=== PATIENT | female | born 2000 | race American Indian/Alaskan Native ===

== ENCOUNTER 2020-09-19 07:09 | Emergency (ER) | payer SELFPAY ==
[2020-09-19] MEDS ORDERED: ACETAMINOPHEN 325 MG TAB PO ONE (10:18)
--- NOTE | 2020-09-19 10:19 | Emergency Department Report ---
ED General Adult HPI - General Chief complaint: Upper Respiratory Infection Stated complaint: CHEST AND SIDE PAIN FOR FIVE DAYS PUI?: No Time Seen by Provider: 09/19/20 10:10 Source: patient Mode of arrival: Ambulatory Limitations: No Limitations - History of Present Illness Initial comments: 20-year-old female presents to the ER today with complaints of right-sided chest pain. Patient states that the pain is located mainly underneath her right breast and radiates around to the back. She states that it started mildly this past Friday but got worse on Friday. She says been a constant pain and feels like somebody punched her in the chest. She states that is worse when she takes a deep breath, when she coughs, when she lays down and it is sore to palpation. She admits that she has had a cough for the past month secondary to her bronchitis which typically occurs during the spring season. She states that the cough has been mild but sometimes it can get severe. She reports difficulty breathing due to the pain in the ribs. She also reports rhinorrhea and nasal congestion. She denies any nausea, vomiting, abdominal pain or UTI symptoms. She denies any calf pain or lower extremity swelling. She denies any fever or chills. She does smoke occasionally. She used to be on control pills but she stopped taking it about a month ago. She denies any recent long distance travel, recent surgery, lower extremity injury, diagnosis of cancer or PE or DVT in the past. She denies any heart disease. MD Complaint: Right sided chest pain -: days(s) (4) - Related Data Previous Rx's Medication Instructions Recorded Last Taken Type Acetamin/Codeine 120-12Mg/5 ml 5 ml PO Q8H PRN #60 ml 06/22/14 Unknown Rx [Tylenol/Codeine 120-12 mg/5 ml] Fluticasone [Flonase] 1 spray NS QDAY #1 bottle 06/22/14 Unknown Rx Albuterol Mdi (or & Nicu Only) 2 puff IH QID PRN #8.5 gram 09/19/20 Unknown Rx [ProAir HFA Inhaler] Promethazine /Codeine 5 - 10 ml PO Q6H PRN #120 ml 09/19/20 Unknown Rx [Phenergan/Codeine 6.25-10 mg/5 ml] methOCARBAMOL [Robaxin TAB] 500 mg PO Q8HR PRN #30 tab 09/19/20 Unknown Rx predniSONE [Deltasone] 40 mg PO QDAY #10 tab 09/19/20 Unknown Rx Allergies Allergy/AdvReac Type Severity Reaction Status Date / Time amoxicillin AdvReac Vomiting Verified 09/19/20 07:54 Penicillins AdvReac VOMIT; Verified 09/19/20 07:54 SKIN PEELS ED Review of Systems ROS: Stated complaint: CHEST AND SIDE PAIN FOR FIVE DAYS Other details as noted in HPI Comment: All other systems reviewed and negative Constitutional: denies: chills, fever ENT: denies: ear pain, throat pain, dental pain, hearing loss, epistaxis, congestion Respiratory: cough, shortness of breath (sec to pain in right chest when she breathes). denies: SOB with exertion, SOB at rest Cardiovascular: chest pain (right sided chest pain ) Gastrointestinal: denies: abdominal pain, nausea, diarrhea, constipation, hematemesis, melena, hematochezia Genitourinary: denies: urgency, dysuria, discharge Musculoskeletal: denies: back pain, joint swelling, arthralgia, myalgia Skin: denies: rash, lesions, change in color, change in hair/nails, pruritus Neurological: denies: headache, weakness, numbness, paresthesias, confusion, abnormal gait, vertigo Psychiatric: denies: anxiety, depression, auditory hallucinations, visual hallucinations, homicidal thoughts, suicidal thoughts Hematological/Lymphatic: denies: easy bleeding, easy bruising ED Past Medical Hx - Past Medical History Hx Asthma: Yes - Social History Smoking Status: Current Some Day Smoker Substance Use Type: None - Medications Home Medications: Home Medications Medication Instructions Recorded Confirmed Last Taken Type Acetamin/Codeine 120-12Mg/5 ml 5 ml PO Q8H PRN #60 ml 06/22/14 Unknown Rx [Tylenol/Codeine 120-12 mg/5 ml] Fluticasone [Flonase] 1 spray NS QDAY #1 bottle 06/22/14 Unknown Rx Albuterol Mdi (or & Nicu Only) 2 puff IH QID PRN #8.5 gram 09/19/20 Unknown Rx [ProAir HFA Inhaler] Promethazine /Codeine 5 - 10 ml PO Q6H PRN #120 ml 09/19/20 Unknown Rx [Phenergan/Codeine 6.25-10 mg/5 ml] methOCARBAMOL [Robaxin TAB] 500 mg PO Q8HR PRN #30 tab 09/19/20 Unknown Rx predniSONE [Deltasone] 40 mg PO QDAY #10 tab 09/19/20 Unknown Rx ED Physical Exam - General Limitations: No Limitations General appearance: alert, in no apparent distress, anxious - Head Head exam: Present: atraumatic, normocephalic, normal inspection - Eye Eye exam: Present: normal appearance, PERRL, EOMI Pupils: Present: normal accommodation - ENT ENT exam: Present: normal exam, mucous membranes moist - Neck Neck exam: Present: normal inspection, full ROM - Respiratory Respiratory exam: Present: normal lung sounds bilaterally, chest wall tenderness (ttp right ribs/chest wall underneath right breast; No swelling, no deformity, ecchymosis or rash noted). Absent: respiratory distress, wheezes, rales, rhonchi - Cardiovascular Cardiovascular Exam: Present: regular rate, normal rhythm, normal heart sounds - GI/Abdominal GI/Abdominal exam: Present: soft. Absent: distended, tenderness, guarding, rebound, rigid - Extremities Exam Extremities exam: Present: normal inspection, full ROM. Absent: pedal edema, calf tenderness - Back Exam Back exam: Present: normal inspection - Neurological Exam Neurological exam: Present: alert, oriented X3, CN II-XII intact, normal gait - Psychiatric Psychiatric exam: Present: normal affect, normal mood - Skin Skin exam: Present: intact ED Course Vital Signs 09/19/20 09/19/20 07:52 12:05 Temperature 98.5 F Pulse Rate 70 89 Respiratory 18 Rate Blood Pressure 120/45 Blood Pressure 121/70 [Left] O2 Sat by Pulse 100 99 Oximetry ED Medical Decision Making - Lab Data Result diagrams: 09/19/20 10:26 09/19/20 10:26 - EKG Data EKG shows normal: sinus rhythm Rate: bradycardia (47) No standard instances Ectopy: PAC - Radiology Data Radiology results: report reviewed Patient: CRYSTAL WILLIAMSON MR#: [id number] : 2000 Acct:[id number] Age/Sex: 20 / F A DM Date: 09/19/20 Loc: ED Attending Dr: Ordering Physician: RAMSEY GARDNER Date of Service: 09/19/20 Procedure(s): XR chest routine 2V Accession Number(s): [id number] cc: RAMSEY GARDNER Fluoro Time In Minutes: CHEST 2 VIEWS 1101 INDICATION / CLINICAL INFORMATION: right sided chest pain COMPARISON: None available. FINDINGS: SUPPORT DEVICES: None. HEART / MEDIASTINUM: No significant abnormality. LUNGS / PLEURA: No significant pulmonary or pleural abnormality. No pneumothorax. ADDITIONAL FINDINGS: No significant additional findings. IMPRESSION: No significant acute abnormality Signer Name: Cristóbal Taylor MD Signed: 09/19/2020 11:19 AM Workstation Name: [id number] Transcribed By: Dictated By: Cristóbal Taylor MD Electronically Authenticated By: Cristóbal Taylor MD Signed Date/Time: 09/19/201118 DD/ 18 TD/TT: - Medical Decision Making Labs reviewed, and unremarkable including a negative troponin and negative D- dimer. Her EKG which shows no significant dysrhythmia, STEMI or acute ischemic changes. Chest x-ray is normal. Patient reports some improvement of her pain after the Tylenol. She is currently well appearing, not toxic, and not in any respiratory or pain distress. Her vital signs are stable. She is neurologically intact, with normal gait in ED. She does have tenderness to her chest at the area she is hurting. Her pain could be related to chest wall strain from her cough. Her history, exam, diagnostic testing and current condition do not suggest that this patient is having acute myocardial infarction, significant arrhythmia, unstable angina, esophageal perforation, pulmonary embolism, aortic dissection, pneumothorax, severe pneumonia, sepsis or other significant pathology that would warrant further testing, continued ED treatment, admission or cardiology or other specialist consultation at this time. Discussed lab/cxr/EKG results, suspected dx and tx plan with patient. Recommend f/u with PCP. She expressed understanding of instructions and agreed with plan. She was stable at time of d/c. Critical care attestation.: If time is entered above; I have spent that time in minutes in the direct care of this critically ill patient, excluding procedure time. ED Disposition Clinical Impression: Chest wall muscle strain, Bronchitis Disposition: DC-01 TO HOME OR SELFCARE Is pt being admited?: No Does the pt Need Aspirin: No Condition: Stable Instructions: Acute Bronchitis, Pediatric, Chest Wall Pain, [id number], Muscle Strain, [id number], Chronic Bronchitis (ED) Additional Instructions: Take the promethazine with codeine as needed for cough and it will also help with pain, also take the muscle relaxer and the prednisone and use albuterol inhaler as prescribed. Follow up with PCP listed on your d/c instructions. Return to ED if worse Prescriptions: predniSONE [Deltasone] 40 mg PO QDAY #10 tab Promethazine /Codeine [Phenergan/Codeine 6.25-10 mg/5 ml] 5 - 10 ml PO Q6H PRN #120 ml PRN Reason: cough Albuterol Mdi (or & Nicu Only) [ProAir HFA Inhaler] 2 puff IH QID PRN #8.5 gram PRN Reason: Shortness Of Breath methOCARBAMOL [Robaxin TAB] 500 mg PO Q8HR PRN #30 tab PRN Reason: Muscle Spasm Referrals: YAHAIRA CARD MD [Staff Physician] - 3-5 Days Forms: Work/School Release Form(ED) Time of Disposition: 11:51
[2020-09-19 10:47] LABS: Basophils % (Auto) 0.3 % (0.0-1.8); Eosinophils % (Auto) 0.4 % (0.0-4.3); Hematocrit 44.7 % (30.3-42.9); Hemoglobin 15.2 gm/dl (10.1-14.3); Lymphocytes # (Auto) 2.5 K/mm3 (1.2-5.4); Mean Corpuscular HGB Conc 34 % (30-34); Mean Corpuscular Volume 94 fl (79-97); Monocytes # (Auto) 0.6 K/mm3 (0.0-0.8); Monocytes % (Auto) 6.5 % (0.0-7.3); Platelet Count 188 K/mm3 (140-440); Red Blood Count 4.77 M/mm3 (3.65-5.03); Red Cell Distribution Width 13.4 % (13.2-15.2)
[2020-09-19] MEDS ORDERED: LIDOCAINE 5% 1 EACH PATCH TD ONE (11:00)
[2020-09-19 11:14] LABS: Alanine Aminotransferase 13 units/L (7-56); Albumin 4.4 g/dL (3.9-5); Blood Urea Nitrogen 9 mg/dL (7-17); Calcium 9.1 mg/dL (8.4-10.2); Hemolysis Index 10
--- NOTE | 2020-09-19 11:23 | XRay Report ---
CHEST 2 VIEWS 1101 INDICATION / CLINICAL INFORMATION: right sided chest pain COMPARISON: None available. FINDINGS: SUPPORT DEVICES: None. HEART / MEDIASTINUM: No significant abnormality. LUNGS / PLEURA: No significant pulmonary or pleural abnormality. No pneumothorax. ADDITIONAL FINDINGS: No significant additional findings. IMPRESSION: No significant acute abnormality Signer Name: Cristóbal Taylor MD Signed: 09/19/2020 11:19 AM Workstation Name: [id number]
[2020-09-19 11:43] LABS: Bilirubin,Urine NEG (Negative); Blood,Urine NEG (Negative); Color,Urine Straw (Yellow); Mucus,Urine FEW /HPF; Protein,Urine <15 mg/dL mg/dL (Negative); Urobilinogen,Urine < 2.0 mg/dL (<2.0); WBC,Urine < 1.0 /HPF (0.0-6.0)
[2020-09-19 11:46] LABS: BUN/Creatinine Ratio 13
[2020-09-19 13:41] VITALS: BP 121/70
--- NOTE | 2020-09-21 11:47 | Electrocardiograph Report ---
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
== END 2020-09-19 12:02 | disposition home or self-care (01) ==
LOC: ED 07:09
DX: S29.011A Strain of muscle and tendon of front wall of thorax, initial encounter (principal); J40 Bronchitis, not specified as acute or chronic; F17.200 Nicotine dependence, unspecified, uncomplicated; Z88.0 Allergy status to penicillin; Z88.1 Allergy status to other antibiotic agents; X58.XXXA Exposure to other specified factors, initial encounter; Y93.89 Activity, other specified; Y92.89 Other specified places as the place of occurrence of the external cause; Y99.8 Other external cause status
CPT/HCPCS: 36415; 71046; 80053; 81001; 83690; 83735; 84484; 84703; 85025; 85379; 93005

== ENCOUNTER 2021-03-02 09:15 | Emergency (ER) | payer MEDICAID ==
[2021-03-02 09:28] VITALS: BP 120/68
--- NOTE | 2021-03-02 10:35 | Emergency Department Report ---
ED General Adult HPI - General Chief complaint: Upper Respiratory Infection Stated complaint: COUGH, SOB, CHESTPAIN Time Seen by Provider: 03/02/21 09:46 Source: patient Mode of arrival: Ambulatory Limitations: No Limitations - History of Present Illness Initial comments: 21-year-old -Nepalese female patient presents with complaints of worsening cough and congestion x4 days. Patient states she is 8 weeks . She reports a history of recurrent bronchitis yearly for many years that she typically experiences around this time. She reports wheezing and cough with yellow sputum. She denies any loss of taste or smell or past other past medical history. Patient states this feels like her normal bronchitis infection. She states chest pain with coughing only and reports NyQuil is not helping. - Related Data Previous Rx's Medication Instructions Recorded Last Taken Type Acetamin/Codeine 120-12Mg/5 ml 5 ml PO Q8H PRN #60 ml 06/22/14 Unknown Rx [Tylenol/Codeine 120-12 mg/5 ml] Fluticasone [Flonase] 1 spray NS QDAY #1 bottle 06/22/14 Unknown Rx Albuterol Mdi (or & Nicu Only) 2 puff IH QID PRN #8.5 gram 09/19/20 Unknown Rx [ProAir HFA Inhaler] Promethazine /Codeine 5 - 10 ml PO Q6H PRN #120 ml 09/19/20 Unknown Rx [Phenergan/Codeine 6.25-10 mg/5 ml] methOCARBAMOL [Robaxin TAB] 500 mg PO Q8HR PRN #30 tab 09/19/20 Unknown Rx predniSONE [Deltasone] 40 mg PO QDAY #10 tab 09/19/20 Unknown Rx Azithromycin [Zithromax Z-ANTOINE] 0 mg PO DAILY #6 tab 03/02/21 Unknown Rx Promethazine /Codeine 5 ml PO Q6H PRN 5 Days #118 ml 03/02/21 Unknown Rx [Phenergan/Codeine 6.25-10 mg/5 ml] Allergies Allergy/AdvReac Type Severity Reaction Status Date / Time amoxicillin AdvReac Vomiting Verified 09/19/20 07:54 Penicillins AdvReac VOMIT; Verified 09/19/20 07:54 SKIN PEELS ED Review of Systems ROS: Stated complaint: COUGH, SOB, CHESTPAIN Other details as noted in HPI Constitutional: denies: chills, diaphoresis, fever, malaise, weakness Respiratory: cough. denies: shortness of breath Cardiovascular: as per HPI. denies: edema Gastrointestinal: denies: abdominal pain, nausea, vomiting Genitourinary: denies: abnormal menses Hematological/Lymphatic: denies: swollen glands ED Past Medical Hx - Past Medical History Previous Medical History?: Yes Hx Congestive Heart Failure: No Hx Diabetes: No Hx Asthma: Yes Hx COPD: No Hx HIV: No - Surgical History Past Surgical History?: No - Social History Smoking Status: Never Smoker - Medications Home Medications: Home Medications Medication Instructions Recorded Confirmed Last Taken Type Acetamin/Codeine 120-12Mg/5 ml 5 ml PO Q8H PRN #60 ml 06/22/14 Unknown Rx [Tylenol/Codeine 120-12 mg/5 ml] Fluticasone [Flonase] 1 spray NS QDAY #1 bottle 06/22/14 Unknown Rx Albuterol Mdi (or & Nicu Only) 2 puff IH QID PRN #8.5 gram 09/19/20 Unknown Rx [ProAir HFA Inhaler] Promethazine /Codeine 5 - 10 ml PO Q6H PRN #120 ml 09/19/20 Unknown Rx [Phenergan/Codeine 6.25-10 mg/5 ml] methOCARBAMOL [Robaxin TAB] 500 mg PO Q8HR PRN #30 tab 09/19/20 Unknown Rx predniSONE [Deltasone] 40 mg PO QDAY #10 tab 09/19/20 Unknown Rx Azithromycin [Zithromax Z-ANTOINE] 0 mg PO DAILY #6 tab 03/02/21 Unknown Rx Promethazine /Codeine 5 ml PO Q6H PRN 5 Days #118 ml 03/02/21 Unknown Rx [Phenergan/Codeine 6.25-10 mg/5 ml] ED Physical Exam - General Limitations: No Limitations General appearance: alert - Head Head exam: Present: atraumatic, normocephalic - Eye Eye exam: Present: normal appearance - ENT ENT exam: Present: normal exam - Neck Neck exam: Present: normal inspection - Respiratory Respiratory exam: Present: rhonchi (Mild bilaterally). Absent: respiratory distress, wheezes, rales, stridor, chest wall tenderness - Cardiovascular Cardiovascular Exam: Present: regular rate, normal rhythm - Neurological Exam Neurological exam: Present: alert, oriented X3 - Psychiatric Psychiatric exam: Present: normal affect, normal mood - Skin Skin exam: Present: warm, dry, intact, normal color. Absent: rash ED Course Vital Signs 03/02/21 03/02/21 09:24 18:29 Temperature 98 F Pulse Rate 100 H 88 Respiratory 16 Rate Blood Pressure 120/68 [Left] O2 Sat by Pulse 100 Oximetry ED Medical Decision Making - Medical Decision Making 21-year-old -Nepalese female patient presents with complaints of worsening cough and congestion x4 days. Patient states she is 8 weeks . She reports a history of recurrent bronchitis yearly for many years that she typically experiences around this time. She reports wheezing and cough with yellow sputum. She denies any loss of taste or smell or past other past medical history. Patient states this feels like her normal bronchitis infection. She states chest pain with coughing only and reports NyQuil is not helping. Patient declines chest x-ray due to . Given history of recurrent bacterial bronchitis, will treat as such with Z-Antoine and cough medicine and inhaler as needed for wheezing. She is to follow-up with her [facility]PLIANCE ANA[facility]ST in 3 days. Discussed in great detail signs and symptoms that should prompt immediate return to the ED with patient verbalized understanding. Her vitals are normal, she is well-appearing, she is stable for discharge home. Also recommend patient receives outpatient COVID-19 testing within the next 24 to 48 hours. Critical care attestation.: If time is entered above; I have spent that time in minutes in the direct care of this critically ill patient, excluding procedure time. ED Disposition Clinical Impression: Acute bacterial bronchitis Disposition: 01 HOME / SELF CARE / HOMELESS Is pt being admited?: No Condition: Stable Instructions: Acute Bronchitis, Adult, [id number], Acute Bronchitis (ED) Prescriptions: Promethazine /Codeine [Phenergan/Codeine 6.25-10 mg/5 ml] 5 ml PO Q6H PRN 5 Days #118 ml PRN Reason: cough Azithromycin [Zithromax Z-ANTOINE] 0 mg PO DAILY #6 tab Referrals: PRIMARY CARE, [Primary Care Provider] - 3-5 Days
== END 2021-03-02 11:04 | disposition home or self-care (01) ==
LOC: ED 09:15
DX: O99.511 Diseases of the respiratory system complicating pregnancy, first trimester (principal); J40 Bronchitis, not specified as acute or chronic; R09.81 Nasal congestion; Z88.0 Allergy status to penicillin; Z3A.08 8 weeks gestation of pregnancy
CPT/HCPCS: 99282

== ENCOUNTER 2021-06-12 10:18 | Outpatient (CLI) | payer MEDICAID ==
[2021-06-12 11:24] VITALS: BP 110/55
--- NOTE | 2021-06-12 14:13 | Ultrasound Report ---
BIOPHYSICAL PROFILE INDICATION: 32 week 5 day , well-being examination COMPARISON: None Intrauterine fetus is noted in a cephalic position. Placenta is anterior and fundal and free of the i nternal cervical os. Cardiac activity was documented at the lower heart rate of 147 bpm. breathing movements: 2/2 movements: 2/2 posture and tone tone: 2/2 Qualitative amniotic fluid volume: 2/2 Total score: 8/8, within normal limits Signer Name: Cristóbal Taylor MD Signed: 06/12/2021 2:09 PM Workstation Name: [id number]
== END 2021-06-12 14:04 | disposition home or self-care (01) ==
LOC: TRG 10:18 → APU 10:47 → TRG 14:04
PROVIDERS: ATTEND Obstetrics & Gynecology
DX: Z34.93 Encounter for supervision of normal pregnancy, unspecified, third trimester (principal); Z3A.32 32 weeks gestation of pregnancy
CPT/HCPCS: 59025; 76819

== ENCOUNTER 2021-06-29 11:37 | Outpatient (CLI) | payer MEDICAID ==
[2021-06-29] MEDS ORDERED: LACTATED RINGERS 1,000 ML IV ONE (11:46)
[2021-06-29 12:11] VITALS: BP 102/63
[2021-06-29 15:59] LABS: Bilirubin,Urine NEG (Negative); Blood,Urine NEG (Negative); Color,Urine Yellow (Yellow); Protein,Urine <15 mg/dL mg/dL (Negative); Urobilinogen,Urine < 2.0 mg/dL (<2.0)
--- NOTE | 2021-06-29 16:32 | Ultrasound Report ---
ULTRASOUND BIOPHYSICAL PROFILE ULTRASOUND OB LIMITED INDICATION: decreased movment TECHNIQUE: Transabdominal ultrasound imaging. COMPARISON: 06/12/2021 FINDINGS: breathing movement = 2 Gross body movement = 2 tone = 2 Qualitative amniotic fluid volume = 2 Total biophysical score = 8/8 Amniotic fluid index is 12.1 cm. Presentation is cephalic. heart rate is 147 beats per minute. IMPRESSION: biophysical profile equals 8/8. Signer Name: Juan Castillo Jr, MD Signed: 06/29/2021 4:28 PM Workstation Name: [id number]
[2021-06-29 17:40] LABS: Bacteria,Urine 1+ /HPF (Negative); Mucus,Urine FEW /HPF
== END 2021-06-29 14:57 | disposition home or self-care (01) ==
LOC: TRG 11:37 → APU 11:38 → TRG 14:57
PROVIDERS: ATTEND Obstetrics & Gynecology
DX: O36.8130 Decreased fetal movements, third trimester, not applicable or unspecified (principal); Z3A.35 35 weeks gestation of pregnancy
CPT/HCPCS: 59025; 76815; 76819; 81001

== ENCOUNTER 2021-07-05 14:24 | Inpatient (IN) | payer MEDICAID ==
[2021-07-05] MEDS ORDERED: LACTATED RINGERS 1,000 ML ONE (14:50)
--- NOTE | 2021-07-05 14:52 | History and Physical Report ---
History of Present Illness Date of examination: 07/05/21 Date of admission: 07/05/21 14:24 Chief complaint: Pt arrived for IOL as recommended by [facility] d/t no interval growth and IUGR <1st%. History of present illness: EDC Confirmation: 07/29/2021 Past History : 4 Term Births: 0 Premature Births: 1 Living Children: 1 Para: 1 Mult. Births: 0 Prev : 0 Prev. attempt? 0 Aborta: 2 Elect. Ab: 2 Spont. Ab: 0 Ectopics: 0 # 1 Delivery date: 11/25/2017 Weeks Gestation: 35 labor: yes Delivery type: Hours of labor: 18 Anesthesia type: IV Delivery location: [place] [facility] Sex: Male weight: 4-4 Comments: PPROM # 2 Delivery date: 02/2018 Weeks Gestation: 6 Delivery type: EAB Comments: Medical # 3 Delivery date: 03/11/2020 Weeks Gestation: 6 Delivery type: EAB Delivery location: [facility] Past Medical History: Reviewed history from 10/16/2018 and no changes required: Negative Past Medical History Past Surgical History: Reviewed history from 04/20/2020 and no changes required: Negative Past Surgical History Family History Summary: Reviewed history Last on 04/20/2020 and no changes required:01/12/2021 Other Family Member - Has No Family History of Ovarvian Cancer - Entered On: 10/16/2018 Other Family Member - Has Family History Colon Cancer - Entered On: 10/16/2018 Other Family Member - Has Family History Breast Cancer - Entered On: 10/16/2018 Other Family Member - Has Family History of Hypertension - Entered On: 10/16/2018 Other Family Member - Has Family History of Diabetes - Entered On: 10/16/2018 Social History: Reviewed history from 04/20/2020 and no changes required: Marital Status: Single Children: 1 Occupation: Student Smoking History: Patient has never smoked. 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 Infection History Hx of STD: none HIV Risk Eval: low risk Hepatitis B Risk Eval: low risk Personal hx. of genital herpes: no Rash, Viral, or Febrile illness since last LMP? no Varicella/Chicken Pox Status: Immunized TB Risk: no Genetic History Congenital Heart Defect: Mom: no Dad: no Abelardo Disease: Mom: no Dad: no Thalassemia Mom: no Dad: no Neural Tube Defect Mom: no Dad: no Down's Syndrome Mom: no Dad: no Jarod-Sachs Mom: no Dad: no Sickle Cell Disease/Trait Mom: no Dad: no Hemophilia Mom: no Dad: no Muscular Dystrophy Mom: no Dad: no Cystic Fibrosis Mom: no Dad: no Jennings Chorea Mom: no Dad: no Mental Retardation Mom: no Dad: no Fragile X Mom: no Dad: no Other Genetic/Chromosomal Disorder Mom: no Dad: no Child w/other defect Mom: no Dad: no Enviromental Exposures Enviromental Exposures Reviewed Xray Exposure: no Medication, drug, or alcohol use since LMP: no Chemical/Other Exposure: no Exposure to Cat Liter: no Hx of Parvovirus (Fifth Disease): no 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 Current Allergies (reviewed today): * AMOXICILLIN (Critical) * PNC (Critical) Past History Past Medical History: other (see HPI) Past Surgical History: other (see HPI) 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: other (see HPI) Family/Genetic History: other (see HPI) - Obstetrical History Expected Date of Delivery: 07/29/21 Actual Gestation: 36 Week(s) 4 Day(s) : 4 Para: 1 Hx # Term Pregnancies: 0 Number of Pregnancies: 1 Spontaneous Abortions: 0 Induced : 2 Number of Living Children: 1 Medications and Allergies Allergies Allergy/AdvReac Type Severity Reaction Status Date / Time amoxicillin AdvReac Vomiting Verified 09/19/20 07:54 Penicillins AdvReac VOMIT; Verified 09/19/20 07:54 SKIN PEELS Home Medications Medication Instructions Recorded Confirmed Last Taken Type Acetamin/Codeine 120-12Mg/5 ml 5 ml PO Q8H PRN #60 ml 06/22/14 Unknown Rx [Tylenol/Codeine 120-12 mg/5 ml] Fluticasone [Flonase] 1 spray NS QDAY #1 bottle 06/22/14 Unknown Rx Albuterol Mdi (or & Nicu Only) 2 puff IH QID PRN #8.5 gram 09/19/20 Unknown Rx [ProAir HFA Inhaler] Promethazine /Codeine 5 - 10 ml PO Q6H PRN #120 ml 09/19/20 Unknown Rx [Phenergan/Codeine 6.25-10 mg/5 ml] methOCARBAMOL [Robaxin TAB] 500 mg PO Q8HR PRN #30 tab 09/19/20 Unknown Rx predniSONE [Deltasone] 40 mg PO QDAY #10 tab 09/19/20 Unknown Rx Azithromycin [Zithromax Z-ANTOINE] 0 mg PO DAILY #6 tab 03/02/21 Unknown Rx Promethazine /Codeine 5 ml PO Q6H PRN 5 Days #118 ml 03/02/21 Unknown Rx [Phenergan/Codeine 6.25-10 mg/5 ml] Review of Systems All systems: negative - Vital Signs Vital signs: Vital Signs Pulse BP 71 103/55 07/05/21 14:41 07/05/21 14:41 Temp Pulse Resp BP Pulse Ox 71 103/55 07/05/21 14:41 07/05/21 14:41 - Physical Exam Breasts: Positive: normal Cardiovascular: Regular rate Lungs: Positive: Normal air movement Abdomen: Positive: normal appearance, soft Genitourinary (Female): Positive: normal external genitalia Vulva: both: normal Vagina: Positive: normal moisture Uterus: Positive: normal size, normal contour Anus/Rectum: Positive: normal perianal skin Extremities: Positive: normal - Obstetrical FHR: category 2 Uterine Contraction Monitor Mode: External Cervical Dilatation: 0 Cervical Effacement Percentage: 0 station: -4 Uterine Contraction Pattern: Absent Uterine Tone Measurement Phase: Resting Results All other labs normal. Assessment and Plan 21y/o @ 36+4 weeks, complicated by IUGR <1st%. GBS neg. Admission orders in EMR. Plan for cervidil tonight. pt desires to eat prior to placement. Will give patient IVF ~500ml then rn can INT. FHT with occasional variables. VSSAF. - Patient Problems (1) 36 weeks gestation of Current Visit: Yes Status: Acute (2) IUGR (intrauterine growth restriction) Current Visit: Yes Status: Acute Plan to address problem: serial IOL started for severe IUGR <1st% cont efm/toco
[2021-07-05] MEDS ORDERED: LIDOCAINE (2%) 20 MG/1 ML VIAL 20 ML MDV INFILTRATI ONE (15:12)
[2021-07-05] MEDS ORDERED: CARBOPROST TROMETHAMINE 250 MCG/1 ML INJ IM PRN (15:12)
[2021-07-05] MEDS ORDERED: TERBUTALINE 1 MG/1 ML INJ SUB-Q PRN (15:12)
[2021-07-05] MEDS ORDERED: ONDANSETRON 4 MG/2 ML INJ IV PRN (15:12)
[2021-07-05] MEDS ORDERED: DINOPROSTONE 10 MG VAG SUPP VG SCH (15:12)
[2021-07-05] MEDS ORDERED: ePHEDrine SULFATE 50 MG/1 ML INJ IV PRN (15:12)
[2021-07-05] MEDS ORDERED: OXYTOCIN 10 UNIT/1 ML INJ IM PRN (15:12)
[2021-07-05] MEDS ORDERED: METHYLERGONOVINE MALEATE 0.2 MG/ML VIAL IM PRN (15:12)
[2021-07-05] MEDS ORDERED: ACETAMINOPHEN 325 MG TAB PO PRN (15:12)
[2021-07-05] MEDS ORDERED: LOPERAMIDE 2 MG CAP PO PRN (15:12)
[2021-07-05] MEDS ORDERED: miSOPROStol 200 MCG TAB PR PRN (15:12)
[2021-07-05] MEDS ORDERED: NalbUPHINE 10 MG/1 ML INJ IV PRN (15:12)
[2021-07-05] MEDS ORDERED: MINERAL OIL 30 ML ORAL LIQD PO PRN (15:12)
[2021-07-05] MEDS: LACTATED RINGERS 1,000 ML IV SCH (15:15)
[2021-07-05] MEDS ORDERED: OXYTOCIN DRIP 30 UNITS/500 ML BAG IV SCH (16:00)
[2021-07-05 16:20] LABS: Hematocrit 32.2 % (30.3-42.9); Hemoglobin 11.6 gm/dl (10.1-14.3); Mean Corpuscular HGB Conc 36 % (30-34); Mean Corpuscular Volume 92 fl (79-97); Platelet Count 161 K/mm3 (140-440); Red Blood Count 3.49 M/mm3 (3.65-5.03); Red Cell Distribution Width 13.5 % (13.2-15.2)
--- NOTE | 2021-07-06 07:51 | Progress Note ---
Assessment and Plan A: 21 y.o. @ 36.5 wks, IOL d/t IUGR. - Patient Problems (1) IUGR (intrauterine growth restriction) Current Visit: Yes Status: Acute Plan to address problem: Continue with IOL. Will allow breakfast then low dose Pitocin. Reassess at noon. Continue to monitor status through EFM. Subjective - Subjective Date of service: 07/06/21 Principal diagnosis: IUP @ 36.5 wks, IOL d/t severe IUGR Patient reports: movement normal, no new complaints, no loss of fluid, no vaginal bleeding, no contractions Objective - Vital Signs Vital Signs: Vital Signs - 12hr 07/05/21 07/05/21 07/05/21 19:54 19:59 20:07 Temperature Pulse Rate 68 91 H 69 Respiratory Rate Blood Pressure O2 Sat by Pulse 100 99 100 Oximetry 07/05/21 07/05/21 07/05/21 20:12 20:17 20:22 Temperature Pulse Rate 70 64 64 Respiratory Rate Blood Pressure O2 Sat by Pulse 99 99 100 Oximetry 07/05/21 07/05/21 07/05/21 20:27 20:32 20:37 Temperature Pulse Rate 74 74 65 Respiratory Rate Blood Pressure O2 Sat by Pulse 99 100 99 Oximetry 07/05/21 07/05/21 07/05/21 20:42 20:47 20:53 Temperature Pulse Rate 73 67 64 Respiratory Rate Blood Pressure O2 Sat by Pulse 99 99 100 Oximetry 07/05/21 07/05/21 07/05/21 20:56 20:58 21:03 Temperature Pulse Rate 67 73 63 Respiratory Rate Blood Pressure 106/50 O2 Sat by Pulse 99 99 Oximetry 07/05/21 07/05/21 07/05/21 21:08 21:13 21:18 Temperature Pulse Rate 66 65 61 Respiratory Rate Blood Pressure O2 Sat by Pulse 98 99 98 Oximetry 07/05/21 07/05/21 07/05/21 21:23 21:28 21:33 Temperature Pulse Rate 68 66 68 Respiratory Rate Blood Pressure O2 Sat by Pulse 99 100 99 Oximetry 07/05/21 07/05/21 07/05/21 21:38 21:43 21:48 Temperature Pulse Rate 66 76 70 Respiratory Rate Blood Pressure O2 Sat by Pulse 99 98 99 Oximetry 02/24/22 02/24/22 02/24/22 21:53 21:58 22:03 Temperature Pulse Rate 62 62 67 Respiratory Rate Blood Pressure O2 Sat by Pulse 100 99 100 Oximetry 07/05/21 07/05/21 07/05/21 22:08 22:13 22:18 Temperature Pulse Rate 63 59 L 61 Respiratory Rate Blood Pressure O2 Sat by Pulse 98 99 99 Oximetry 07/05/21 07/05/21 07/05/21 22:23 22:28 22:36 Temperature Pulse Rate 62 65 65 Respiratory Rate Blood Pressure O2 Sat by Pulse 100 100 100 Oximetry 07/05/21 07/05/21 07/05/21 22:37 22:41 22:46 Temperature Pulse Rate 68 66 68 Respiratory Rate Blood Pressure 104/51 O2 Sat by Pulse 98 98 Oximetry 07/05/21 07/05/21 07/05/21 22:51 22:56 23:01 Temperature Pulse Rate 57 L 64 76 Respiratory Rate Blood Pressure O2 Sat by Pulse 99 99 98 Oximetry 07/05/21 07/05/21 07/05/21 23:06 23:11 23:16 Temperature Pulse Rate 69 62 71 Respiratory Rate Blood Pressure O2 Sat by Pulse 98 99 100 Oximetry 07/05/21 07/05/21 07/05/21 23:21 23:26 23:31 Temperature Pulse Rate 61 58 L 64 Respiratory Rate Blood Pressure O2 Sat by Pulse 98 99 98 Oximetry 07/05/21 07/05/21 07/05/21 23:36 23:41 23:46 Temperature Pulse Rate 80 60 78 Respiratory Rate Blood Pressure O2 Sat by Pulse 98 98 98 Oximetry 07/05/21 07/05/21 07/06/21 23:51 23:56 00:01 Temperature Pulse Rate 63 70 67 Respiratory Rate Blood Pressure 105/54 O2 Sat by Pulse 98 100 100 Oximetry 07/06/21 07/06/21 07/06/21 00:06 00:11 00:19 Temperature Pulse Rate 78 68 69 Respiratory Rate Blood Pressure O2 Sat by Pulse 99 98 100 Oximetry 07/06/21 07/06/21 07/06/21 00:23 00:24 00:29 Temperature 97.7 F Pulse Rate 68 62 Respiratory 16 Rate Blood Pressure O2 Sat by Pulse 99 99 98 Oximetry 07/06/21 07/06/21 07/06/21 00:34 00:39 00:44 Temperature Pulse Rate 70 62 78 Respiratory Rate Blood Pressure O2 Sat by Pulse 98 98 98 Oximetry 07/06/21 07/06/21 07/06/21 00:49 00:54 00:57 Temperature Pulse Rate 70 69 74 Respiratory Rate Blood Pressure 107/52 O2 Sat by Pulse 98 98 Oximetry 07/06/21 07/06/21 07/06/21 00:59 01:04 01:09 Temperature Pulse Rate 76 79 69 Respiratory Rate Blood Pressure O2 Sat by Pulse 99 98 98 Oximetry 07/06/21 07/06/21 07/06/21 01:14 01:19 01:24 Temperature Pulse Rate 71 69 71 Respiratory Rate Blood Pressure O2 Sat by Pulse 98 98 99 Oximetry 07/06/21 07/06/21 07/06/21 01:29 01:34 01:39 Temperature Pulse Rate 70 62 65 Respiratory Rate Blood Pressure O2 Sat by Pulse 99 99 98 Oximetry 07/06/21 07/06/21 07/06/21 01:44 01:49 01:54 Temperature Pulse Rate 69 69 68 Respiratory Rate Blood Pressure O2 Sat by Pulse 98 99 98 Oximetry 07/06/21 07/06/21 07/06/21 01:59 02:04 02:07 Temperature Pulse Rate 68 71 76 Respiratory Rate Blood Pressure 94/50 O2 Sat by Pulse 98 98 Oximetry 07/06/21 07/06/21 07/06/21 02:09 02:14 02:19 Temperature Pulse Rate 66 64 65 Respiratory Rate Blood Pressure O2 Sat by Pulse 99 99 98 Oximetry 07/06/21 07/06/21 07/06/21 02:24 02:29 02:34 Temperature Pulse Rate 60 58 L 60 Respiratory Rate Blood Pressure O2 Sat by Pulse 98 98 98 Oximetry 07/06/21 07/06/21 07/06/21 02:39 02:44 02:49 Temperature Pulse Rate 63 65 62 Respiratory Rate Blood Pressure O2 Sat by Pulse 98 98 98 Oximetry 07/06/21 07/06/21 07/06/21 02:54 02:59 03:04 Temperature Pulse Rate 64 63 57 L Respiratory Rate Blood Pressure O2 Sat by Pulse 98 98 98 Oximetry 07/06/21 07/06/21 07/06/21 03:06 03:09 03:14 Temperature Pulse Rate 70 56 L 66 Respiratory Rate Blood Pressure 103/54 O2 Sat by Pulse 99 99 Oximetry 07/06/21 07/06/2122 03:19 03:24 03:29 Temperature Pulse Rate 64 60 72 Respiratory Rate Blood Pressure O2 Sat by Pulse 99 99 99 Oximetry 07/06/21 07/06/21 07/06/21 03:34 03:39 03:44 Temperature Pulse Rate 63 74 68 Respiratory Rate Blood Pressure O2 Sat by Pulse 100 99 99 Oximetry 07/06/21 07/06/21 07/06/21 03:49 03:54 03:59 Temperature Pulse Rate 72 66 64 Respiratory Rate Blood Pressure O2 Sat by Pulse 98 99 99 Oximetry 07/06/21 07/06/21 07/06/21 04:01 04:03 04:04 Temperature 98 F Pulse Rate 71 70 Respiratory 18 Rate Blood Pressure 104/62 O2 Sat by Pulse 100 99 Oximetry 07/06/21 07/06/21 07/06/21 04:09 04:14 04:19 Temperature Pulse Rate 64 65 66 Respiratory Rate Blood Pressure O2 Sat by Pulse 98 98 99 Oximetry 07/06/21 07/06/21 07/06/21 04:24 04:29 04:34 Temperature Pulse Rate 65 65 69 Respiratory Rate Blood Pressure O2 Sat by Pulse 99 100 99 Oximetry 07/06/21 07/06/21 07/06/21 04:39 04:44 04:49 Temperature Pulse Rate 74 74 57 L Respiratory Rate Blood Pressure O2 Sat by Pulse 99 99 98 Oximetry 07/06/21 07/06/21 07/06/21 04:54 04:59 05:04 Temperature Pulse Rate 59 L 63 67 Respiratory Rate Blood Pressure O2 Sat by Pulse 98 98 99 Oximetry 07/06/21 07/06/21 07/06/21 05:05 05:07 05:09 Temperature Pulse Rate 66 70 62 Respiratory Rate Blood Pressure 83/47 100/57 O2 Sat by Pulse 99 Oximetry 07/06/21 07/06/21 07/06/21 05:14 05:19 05:24 Temperature Pulse Rate 69 72 64 Respiratory Rate Blood Pressure O2 Sat by Pulse 98 98 98 Oximetry 07/06/21 07/06/21 07/06/21 05:29 05:34 05:39 Temperature Pulse Rate 56 L 94 H 65 Respiratory Rate Blood Pressure O2 Sat by Pulse 98 98 98 Oximetry 07/06/21 07/06/21 07/06/21 05:44 05:49 05:54 Temperature Pulse Rate 62 63 65 Respiratory Rate Blood Pressure O2 Sat by Pulse 98 98 98 Oximetry 07/06/21 07/06/21 07/06/21 05:59 06:07 06:12 Temperature Pulse Rate 60 81 88 Respiratory Rate Blood Pressure 105/64 O2 Sat by Pulse 98 100 100 Oximetry 07/06/21 07/06/21 07/06/21 06:17 06:22 06:27 Temperature Pulse Rate 66 68 63 Respiratory Rate Blood Pressure O2 Sat by Pulse 100 98 99 Oximetry 07/06/21 07/06/21 07/06/21 06:32 06:37 06:42 Temperature Pulse Rate 72 63 66 Respiratory Rate Blood Pressure O2 Sat by Pulse 99 100 100 Oximetry 07/06/21 07/06/21 07/06/21 06:47 06:52 06:57 Temperature Pulse Rate 71 66 62 Respiratory Rate Blood Pressure O2 Sat by Pulse 100 100 100 Oximetry 07/06/21 07/06/21 07/06/21 07:02 07:07 07:12 Temperature Pulse Rate 72 63 70 Respiratory Rate Blood Pressure O2 Sat by Pulse 100 100 100 Oximetry 07/06/21 07/06/21 07/06/21 07:17 07:25 07:27 Temperature Pulse Rate 58 L 72 70 Respiratory Rate Blood Pressure 116/57 O2 Sat by Pulse 100 99 Oximetry 07/06/21 07/06/21 07/06/21 07:30 07:35 07:40 Temperature Pulse Rate 70 86 78 Respiratory Rate Blood Pressure O2 Sat by Pulse 100 100 100 Oximetry 07/06/21 07:45 Temperature Pulse Rate 90 Respiratory Rate Blood Pressure O2 Sat by Pulse 100 Oximetry - Exam Cardiovascular: Regular rate Lungs: Normal air movement Abdomen: Present: normal appearance, soft Uterus: Present: normal FHR: category 1 Uterine Contraction Monitor Mode: External Cervical Dilatation: 1 (Per Chronometer Repairer RN) Cervical Effacement Percentage: 40 station: -1 Uterine Contraction Pattern: Irregular (Irritability noted) Uterine Tone Measurement Phase: Resting Uterine Contraction Intensity: Mild - Labs Labs: Abnormal Labs 07/05/21 15:00 RBC 3.49 L MCH 33 H MCHC 36 H Laboratory Results - last 24 hr 07/05/21 07/05/21 07/05/21 15:00 15:00 15:00 WBC 10.5 RBC 3.49 L Hgb 11.6 Hct 32.2 MCV 92 MCH 33 H MCHC 36 H RDW 13.5 Plt Count 161 Syphilis IgG/IgM Ab Nonreactive Blood Type O POSITIVE Antibody Screen Negative
[2021-07-06] MEDS: OXYTOCIN DRIP 30 UNITS/500 ML BAG IV SCH (11:06)
--- NOTE | 2021-07-06 12:50 | Event Note ---
Date: 07/06/21 Per RN patient delayed IOL and did not want Pitocin started. Pitocin, low dose, currently at 2mu. Will assess around 1600 for cervical change. If no change, then Cervidil will be ordered for the evening.
[2021-07-06] MEDS: LACTATED RINGERS 1,000 ML IV SCH (14:47)
[2021-07-06] MEDS ORDERED: DINOPROSTONE 10 MG VAG SUPP VG ONE (18:56)
--- NOTE | 2021-07-06 19:22 | Event Note ---
Date: 07/06/21 Cervidil placed. Unchanged cervical exam. Category 1 monitor tracing. 0/thick/-1.
[2021-07-06] MEDS: ZOLPIDEM 5 MG TAB PO PRN (22:46)
[2021-07-07] MEDS: FAMOTIDINE 10 MG TAB PO SCH ×2 (08:42→18:31)
[2021-07-07] MEDS ORDERED: METOCLOPRAMIDE 10 MG TAB PO SCH (09:00)
[2021-07-07] MEDS: OXYTOCIN DRIP 30 UNITS/500 ML BAG IV SCH (09:44)
--- NOTE | 2021-07-07 12:58 | Progress Note ---
Assessment and Plan Pt resting in bed states feeling more contractions. FOC at bedside no concerns at this time. Pitocin on 4 mU/ hr. Discussed labor expectations and pain management. continue titrating pitocin. pt desires to try natural but is open to epidural if needed, Anticipate . OSMEL Sandoval CNM - Patient Problems (1) 36 weeks gestation of Current Visit: Yes Status: Acute Plan to address problem: IOL for Severe IUGR Pitocin per protocol (2) IUGR (intrauterine growth restriction) Current Visit: Yes Status: Acute Plan to address problem: IOL Subjective - Subjective Date of service: 07/07/21 Principal diagnosis: IUP @ 36.5 wks, IOL d/t severe IUGR Interval history: EDC Confirmation: 07/29/2021 Past History : 4 Term Births: 0 Premature Births: 1 Living Children: 1 Para: 1 Mult. Births: 0 Prev : 0 Prev. attempt? 0 Aborta: 2 Elect. Ab: 2 Spont. Ab: 0 Ectopics: 0 # 1 Delivery date: 11/25/2017 Weeks Gestation: 35 labor: yes Delivery type: Hours of labor: 18 Anesthesia type: IV Delivery location: [place] Sex: Male weight: 4-4 Comments: PPROM # 2 Delivery date: 02/2018 Weeks Gestation: 6 Delivery type: EAB Comments: Medical # 3 Delivery date: 03/11/2020 Weeks Gestation: 6 Delivery type: EAB Delivery location: [facility] Past Medical History: Reviewed history from 10/16/2018 and no changes required: Negative Past Medical History Past Surgical History: Reviewed history from 04/20/2020 and no changes required: Negative Past Surgical History Family History Summary: Reviewed history Last on 04/20/2020 and no changes required:01/12/2021 Other Family Member - Has No Family History of Ovarvian Cancer - Entered On: 10/16/2018 Other Family Member - Has Family History Colon Cancer - Entered On: 10/16/2018 Other Family Member - Has Family History Breast Cancer - Entered On: 10/16/2018 Other Family Member - Has Family History of Hypertension - Entered On: 10/16/2018 Other Family Member - Has Family History of Diabetes - Entered On: 10/16/2018 Social History: Reviewed history from 04/20/2020 and no changes required: Marital Status: Single Children: 1 Occupation: Student Smoking History: Patient has never smoked. 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 Infection History Hx of STD: none HIV Risk Eval: low risk Hepatitis B Risk Eval: low risk Personal hx. of genital herpes: no Rash, Viral, or Febrile illness since last LMP? no Varicella/Chicken Pox Status: Immunized TB Risk: no Genetic History Congenital Heart Defect: Mom: no Dad: no Abelardo Disease: Mom: no Dad: no Thalassemia Mom: no Dad: no Neural Tube Defect Mom: no Dad: no Down's Syndrome Mom: no Dad: no Jarod-Sachs Mom: no Dad: no Sickle Cell Disease/Trait Mom: no Dad: no Hemophilia Mom: no Dad: no Muscular Dystrophy Mom: no Dad: no Cystic Fibrosis Mom: no Dad: no Catarina Chorea Mom: no Dad: no Mental Retardation Mom: no Dad: no Fragile X Mom: no Dad: no Other Genetic/Chromosomal Disorder Mom: no Dad: no Child w/other defect Mom: no Dad: no Enviromental Exposures Enviromental Exposures Reviewed Xray Exposure: no Medication, drug, or alcohol use since LMP: no Chemical/Other Exposure: no Exposure to Cat Liter: no Hx of Parvovirus (Fifth Disease): no 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 Current Allergies (reviewed today): * AMOXICILLIN (Critical) * PNC (Critical) Patient reports: movement normal, contractions, no new complaints, no loss of fluid, no vaginal bleeding Objective - Vital Signs Vital Signs: Vital Signs - 12hr 07/07/21 07/07/21 07/07/21 00:58 01:03 01:08 Temperature Pulse Rate 65 74 66 Respiratory Rate [Bilateral Abdomen] Blood Pressure Blood Pressure [Left] O2 Sat by Pulse 98 98 99 Oximetry 07/07/21 07/07/21 07/07/21 01:13 01:18 01:23 Temperature Pulse Rate 77 80 61 Respiratory Rate [Bilateral Abdomen] Blood Pressure Blood Pressure [Left] O2 Sat by Pulse 98 99 98 Oximetry 07/07/21 07/07/21 07/07/21 01:28 01:33 01:38 Temperature Pulse Rate 80 66 68 Respiratory Rate [Bilateral Abdomen] Blood Pressure Blood Pressure [Left] O2 Sat by Pulse 97 98 98 Oximetry 07/07/21 07/07/21 07/07/21 01:43 01:48 01:53 Temperature Pulse Rate 77 66 73 Respiratory Rate [Bilateral Abdomen] Blood Pressure Blood Pressure [Left] O2 Sat by Pulse 98 98 98 Oximetry 07/07/21 07/07/21 07/07/21 01:58 02:03 02:08 Temperature Pulse Rate 68 71 63 Respiratory Rate [Bilateral Abdomen] Blood Pressure Blood Pressure [Left] O2 Sat by Pulse 98 99 98 Oximetry 07/07/21 07/07/21 07/07/21 02:13 02:18 02:23 Temperature Pulse Rate 67 68 84 Respiratory Rate [Bilateral Abdomen] Blood Pressure Blood Pressure [Left] O2 Sat by Pulse 98 98 98 Oximetry 07/07/21 07/07/21 07/07/21 02:28 02:33 02:38 Temperature Pulse Rate 66 69 71 Respiratory Rate [Bilateral Abdomen] Blood Pressure Blood Pressure [Left] O2 Sat by Pulse 99 98 98 Oximetry 07/07/21 07/07/21 07/07/21 02:43 02:48 02:53 Temperature Pulse Rate 70 75 67 Respiratory Rate [Bilateral Abdomen] Blood Pressure Blood Pressure [Left] O2 Sat by Pulse 98 99 99 Oximetry 07/07/21 07/07/21 07/07/21 02:58 03:03 03:09 Temperature Pulse Rate 76 77 69 Respiratory Rate [Bilateral Abdomen] Blood Pressure Blood Pressure [Left] O2 Sat by Pulse 98 97 97 Oximetry 07/07/21 07/07/21 07/07/21 03:13 03:18 03:23 Temperature Pulse Rate 75 70 74 Respiratory Rate [Bilateral Abdomen] Blood Pressure Blood Pressure [Left] O2 Sat by Pulse 98 97 98 Oximetry 07/07/21 07/07/21 07/07/21 03:28 03:34 03:38 Temperature Pulse Rate 68 65 69 Respiratory Rate [Bilateral Abdomen] Blood Pressure Blood Pressure [Left] O2 Sat by Pulse 98 99 98 Oximetry 07/07/21 07/07/21 07/07/21 03:43 03:48 03:53 Temperature Pulse Rate 79 77 68 Respiratory Rate [Bilateral Abdomen] Blood Pressure Blood Pressure [Left] O2 Sat by Pulse 98 98 98 Oximetry 07/07/21 07/07/21 07/07/21 03:58 04:03 04:08 Temperature Pulse Rate 74 71 80 Respiratory Rate [Bilateral Abdomen] Blood Pressure Blood Pressure [Left] O2 Sat by Pulse 98 98 97 Oximetry 07/07/21 07/07/21 07/07/21 04:13 04:18 04:23 Temperature Pulse Rate 67 59 L 75 Respiratory Rate [Bilateral Abdomen] Blood Pressure Blood Pressure [Left] O2 Sat by Pulse 98 98 98 Oximetry 07/07/21 07/07/21 07/07/21 04:28 04:34 04:38 Temperature Pulse Rate 73 76 80 Respiratory Rate [Bilateral Abdomen] Blood Pressure Blood Pressure [Left] O2 Sat by Pulse 98 98 98 Oximetry 07/07/21 07/07/21 07/07/21 04:43 04:49 04:53 Temperature Pulse Rate 79 70 77 Respiratory Rate [Bilateral Abdomen] Blood Pressure Blood Pressure [Left] O2 Sat by Pulse 98 98 98 Oximetry 07/07/21 07/07/21 07/07/21 04:59 05:03 05:08 Temperature Pulse Rate 71 65 86 Respiratory Rate [Bilateral Abdomen] Blood Pressure Blood Pressure [Left] O2 Sat by Pulse 98 98 97 Oximetry 07/07/21 07/07/21 07/07/21 05:14 05:18 05:23 Temperature Pulse Rate 65 63 81 Respiratory Rate [Bilateral Abdomen] Blood Pressure Blood Pressure [Left] O2 Sat by Pulse 98 98 97 Oximetry 07/07/21 07/07/21 07/07/21 05:29 05:33 05:38 Temperature Pulse Rate 72 73 64 Respiratory Rate [Bilateral Abdomen] Blood Pressure Blood Pressure [Left] O2 Sat by Pulse 98 98 98 Oximetry 07/07/21 07/07/21 07/07/21 05:43 05:48 05:53 Temperature Pulse Rate 76 67 74 Respiratory Rate [Bilateral Abdomen] Blood Pressure Blood Pressure [Left] O2 Sat by Pulse 98 98 98 Oximetry 0207/07/21 07/07/21 05:58 06:03 06:08 Temperature Pulse Rate 95 H 79 65 Respiratory Rate [Bilateral Abdomen] Blood Pressure Blood Pressure [Left] O2 Sat by Pulse 99 99 98 Oximetry 07/07/21 07/07/21 07/07/21 06:13 06:18 06:24 Temperature Pulse Rate 72 69 69 Respiratory Rate [Bilateral Abdomen] Blood Pressure Blood Pressure [Left] O2 Sat by Pulse 98 98 97 Oximetry 07/07/21 07/07/21 07/07/21 06:29 06:33 06:39 Temperature Pulse Rate 63 76 76 Respiratory Rate [Bilateral Abdomen] Blood Pressure Blood Pressure [Left] O2 Sat by Pulse 97 98 98 Oximetry 07/07/21 07/07/21 07/07/21 06:44 06:48 06:54 Temperature Pulse Rate 65 73 76 Respiratory Rate [Bilateral Abdomen] Blood Pressure Blood Pressure [Left] O2 Sat by Pulse 98 99 99 Oximetry 07/07/21 07/07/21 07/07/21 07:10 07:11 09:35 Temperature 98.2 F Pulse Rate 77 Respiratory 14 Rate [Bilateral Abdomen] Blood Pressure 114/65 Blood Pressure 114/65 [Left] O2 Sat by Pulse Oximetry 07/07/21 09:55 Temperature Pulse Rate 72 Respiratory Rate [Bilateral Abdomen] Blood Pressure 104/58 Blood Pressure [Left] O2 Sat by Pulse Oximetry - Exam Breasts: normal Abdomen: Present: normal appearance, soft Vulva: both: normal Uterus: Present: normal FHR: category 1 Uterine Contraction Monitor Mode: External Cervical Dilatation: 2.5 Cervical Effacement Percentage: 70 station: -2 Uterine Contraction Frequency (min): 3-6 Uterine Contraction Duration: 60-90 Uterine Contraction Pattern: Irregular Uterine Tone Measurement Phase: Resting Uterine Contraction Intensity: Moderate Extremities: normal - Labs Labs: Abnormal Labs 07/05/21 15:00 RBC 3.49 L MCH 33 H MCHC 36 H
[2021-07-07] MEDS: LACTATED RINGERS 1,000 ML IV SCH ×5 (13:05→23:33)
--- NOTE | 2021-07-07 15:53 | Progress Note ---
Assessment and Plan Pt in bed, emotional and tearful about not feeling any contractions. NO change in SVE. Discussed options including use of a cook's catheter and AROM. Pt declines both at this time. Discussed current treatment- continue active management pitocin until 1700. If no additional signs of labor will d/c pitocin and allow PM care and Low dose pitocin over night. Pt agrees with plan. All questions addressed. No concerns at this time. OSMEL Sandoval CNM - Patient Problems (1) 36 weeks gestation of Current Visit: Yes Status: Acute (2) IUGR (intrauterine growth restriction) Current Visit: Yes Status: Acute Subjective - Subjective Principal diagnosis: IUP @ 36.5 wks, IOL d/t severe IUGR Interval history: EDC Confirmation: 07/29/2021 Past History : 4 Term Births: 0 Premature Births: 1 Living Children: 1 Para: 1 Mult. Births: 0 Prev : 0 Prev. attempt? 0 Aborta: 2 Elect. Ab: 2 Spont. Ab: 0 Ectopics: 0 # 1 Delivery date: 11/25/2017 Weeks Gestation: 35 labor: yes Delivery type: Hours of labor: 18 Anesthesia type: IV Delivery location: [place] Infant Sex: Male weight: 4-4 Comments: PPROM # 2 Delivery date: 02/2018 Weeks Gestation: 6 Delivery type: EAB Comments: Medical # 3 Delivery date: 03/11/2020 Weeks Gestation: 6 Delivery type: EAB Delivery location: [facility] [place] [facility] Past Medical History: Reviewed history from 10/16/2018 and no changes required: Negative Past Medical History Past Surgical History: Reviewed history from 04/20/2020 and no changes required: Negative Past Surgical History Family History Summary: Reviewed history Last on 04/20/2020 and no changes required:01/12/2021 Other Family Member - Has No Family History of Ovarvian Cancer - Entered On: 10/16/2018 Other Family Member - Has Family History Colon Cancer - Entered On: 10/16/2018 Other Family Member - Has Family History Breast Cancer - Entered On: 10/16/2018 Other Family Member - Has Family History of Hypertension - Entered On: 10/16/2018 Other Family Member - Has Family History of Diabetes - Entered On: 10/16/2018 Social History: Reviewed history from 04/20/2020 and no changes required: Marital Status: Single Children: 1 Occupation: Student Smoking History: Patient has never smoked. Risk Factors: Smoked Tobacco Use: Never smoker Smokeless Tobacco Use: Never Passive Smoke Exposure: no HIV High Risk Behavior: low risk Caffeine Use: 0 drinks per day Exercise: no Seatbelt Use: preg-membership counselor % No Dietary Counseling Reason: pn yes Alcohol Use: yes Type: occ prior to Drug Use: no Past Medical History Surgery (Non-sales assistants and salespersons): Negative Past Surgical History Abnormal PAP: negative KIERAN Exposure: negative Infertility: negative Uterine Anomaly: negative Uterine Surgery (not C/S): negative Other Gynecologic Problems: negative Social Hx: Marital Status: Single Children: 1 Occupation: Student Smoking History: Patient has never smoked. Infection History Hx of STD: none HIV Risk Eval: low risk Hepatitis B Risk Eval: low risk Personal hx. of genital herpes: no Rash, Viral, or Febrile illness since last LMP? no Varicella/Chicken Pox Status: Immunized TB Risk: no Genetic History Congenital Heart Defect: Mom: no Dad: no Abelardo Disease: Mom: no Dad: no Thalassemia Mom: no Dad: no Neural Tube Defect Mom: no Dad: no Down's Syndrome Mom: no Dad: no Jarod-Sachs Mom: no Dad: no Sickle Cell Disease/Trait Mom: no Dad: no Hemophilia Mom: no Dad: no Muscular Dystrophy Mom: no Dad: no Cystic Fibrosis Mom: no Dad: no [place] Chorea Mom: no Dad: no Mental Retardation Mom: no Dad: no Fragile X Mom: no Dad: no Other Genetic/Chromosomal Disorder Mom: no Dad: no Child w/other defect Mom: no Dad: no Enviromental Exposures Enviromental Exposures Reviewed Xray Exposure: no Medication, drug, or alcohol use since LMP: no Chemical/Other Exposure: no Exposure to Cat Liter: no Hx of Parvovirus (Fifth Disease): no 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 Current Allergies (reviewed today): * AMOXICILLIN (Critical) * PNC (Critical) Patient reports: movement normal, no new complaints, no loss of fluid, no vaginal bleeding, no contractions Objective - Vital Signs Vital Signs: Vital Signs - 12hr 07/07/21 07/07/21 07/07/21 03:48 03:53 03:58 Temperature Pulse Rate 77 68 74 Respiratory Rate Respiratory Rate [Bilateral Abdomen] Blood Pressure Blood Pressure [Left] O2 Sat by Pulse 98 98 98 Oximetry 07/07/21 07/07/21 07/07/21 04:03 04:08 04:13 Temperature Pulse Rate 71 80 67 Respiratory Rate Respiratory Rate [Bilateral Abdomen] Blood Pressure Blood Pressure [Left] O2 Sat by Pulse 98 97 98 Oximetry 07/07/21 07/07/21 07/07/21 04:18 04:23 04:28 Temperature Pulse Rate 59 L 75 73 Respiratory Rate Respiratory Rate [Bilateral Abdomen] Blood Pressure Blood Pressure [Left] O2 Sat by Pulse 98 98 98 Oximetry 07/07/21 07/07/21 07/07/21 04:34 04:38 04:43 Temperature Pulse Rate 76 80 79 Respiratory Rate Respiratory Rate [Bilateral Abdomen] Blood Pressure Blood Pressure [Left] O2 Sat by Pulse 98 98 98 Oximetry 07/07/21 07/07/21 07/07/21 04:49 04:53 04:59 Temperature Pulse Rate 70 77 71 Respiratory Rate Respiratory Rate [Bilateral Abdomen] Blood Pressure Blood Pressure [Left] O2 Sat by Pulse 98 98 98 Oximetry 07/07/21 07/07/21 07/07/21 05:03 05:08 05:14 Temperature Pulse Rate 65 86 65 Respiratory Rate Respiratory Rate [Bilateral Abdomen] Blood Pressure Blood Pressure [Left] O2 Sat by Pulse 98 97 98 Oximetry 07/07/21 07/07/21 07/07/21 05:18 05:23 05:29 Temperature Pulse Rate 63 81 72 Respiratory Rate Respiratory Rate [Bilateral Abdomen] Blood Pressure Blood Pressure [Left] O2 Sat by Pulse 98 97 98 Oximetry 07/07/21 07/07/21 07/07/21 05:33 05:38 05:43 Temperature Pulse Rate 73 64 76 Respiratory Rate Respiratory Rate [Bilateral Abdomen] Blood Pressure Blood Pressure [Left] O2 Sat by Pulse 98 98 98 Oximetry 07/07/21 07/07/21 07/07/21 05:48 05:53 05:58 Temperature Pulse Rate 67 74 95 H Respiratory Rate Respiratory Rate [Bilateral Abdomen] Blood Pressure Blood Pressure [Left] O2 Sat by Pulse 98 98 99 Oximetry 07/07/21 07/07/21 07/07/21 06:03 06:08 06:13 Temperature Pulse Rate 79 65 72 Respiratory Rate Respiratory Rate [Bilateral Abdomen] Blood Pressure Blood Pressure [Left] O2 Sat by Pulse 99 98 98 Oximetry 07/07/21 07/07/21 07/07/21 06:18 06:24 06:29 Temperature Pulse Rate 69 69 63 Respiratory Rate Respiratory Rate [Bilateral Abdomen] Blood Pressure Blood Pressure [Left] O2 Sat by Pulse 98 97 97 Oximetry 07/07/21 07/07/21 07/07/21 06:33 06:39 06:44 Temperature Pulse Rate 76 76 65 Respiratory Rate Respiratory Rate [Bilateral Abdomen] Blood Pressure Blood Pressure [Left] O2 Sat by Pulse 98 98 98 Oximetry 07/07/21 07/07/21 07/07/21 06:48 06:54 07:10 Temperature 98.2 F Pulse Rate 73 76 Respiratory Rate Respiratory Rate [Bilateral Abdomen] Blood Pressure Blood Pressure 114/65 [Left] O2 Sat by Pulse 99 99 Oximetry 07/07/21 07/07/21 07/07/21 07:11 09:35 09:55 Temperature Pulse Rate 77 72 Respiratory Rate Respiratory 14 Rate [Bilateral Abdomen] Blood Pressure 114/65 104/58 Blood Pressure [Left] O2 Sat by Pulse Oximetry 07/07/21 07/07/21 07/07/21 13:57 13:58 13:59 Temperature 97.8 F Pulse Rate 60 54 L 60 Respiratory 14 Rate Respiratory Rate [Bilateral Abdomen] Blood Pressure 106/61 Blood Pressure 106/61 [Left] O2 Sat by Pulse 100 100 Oximetry 07/07/21 07/07/21 07/07/21 14:04 14:09 14:14 Temperature Pulse Rate 65 68 66 Respiratory Rate Respiratory Rate [Bilateral Abdomen] Blood Pressure Blood Pressure [Left] O2 Sat by Pulse 100 99 100 Oximetry 07/07/21 07/07/21 07/07/21 14:19 14:24 14:29 Temperature Pulse Rate 62 61 74 Respiratory Rate Respiratory Rate [Bilateral Abdomen] Blood Pressure Blood Pressure [Left] O2 Sat by Pulse 100 99 100 Oximetry 07/07/21 07/07/21 07/07/21 14:34 14:38 14:44 Temperature Pulse Rate 62 61 65 Respiratory Rate Respiratory Rate [Bilateral Abdomen] Blood Pressure Blood Pressure [Left] O2 Sat by Pulse 100 100 100 Oximetry 07/07/21 07/07/21 07/07/21 14:49 14:54 14:59 Temperature Pulse Rate 65 81 92 H Respiratory Rate Respiratory Rate [Bilateral Abdomen] Blood Pressure Blood Pressure [Left] O2 Sat by Pulse 100 100 100 Oximetry 07/07/21 07/07/21 07/07/21 15:04 15:09 15:14 Temperature Pulse Rate 84 80 83 Respiratory Rate Respiratory Rate [Bilateral Abdomen] Blood Pressure Blood Pressure [Left] O2 Sat by Pulse 100 100 100 Oximetry 07/07/21 15:19 Temperature Pulse Rate 68 Respiratory Rate Respiratory Rate [Bilateral Abdomen] Blood Pressure Blood Pressure [Left] O2 Sat by Pulse 100 Oximetry - Exam Breasts: normal Abdomen: Present: normal appearance, soft Uterus: Present: normal FHR: category 2 Uterine Contraction Monitor Mode: External Cervical Dilatation: 2 Cervical Effacement Percentage: 70 station: -2 Uterine Contraction Frequency (min): 2-3 Uterine Contraction Duration: 60-80 Uterine Contraction Pattern: Regular Uterine Tone Measurement Phase: Resting Uterine Contraction Intensity: Mild Extremities: normal - Labs Labs: Abnormal Labs 07/05/21 15:00 RBC 3.49 L MCH 33 H MCHC 36 H
[2021-07-07] MEDS: ZOLPIDEM 5 MG TAB PO PRN (20:45)
[2021-07-08] MEDS: LACTATED RINGERS 1,000 ML IV SCH ×2 (02:32→06:00)
--- NOTE | 2021-07-08 06:53 | Progress Note ---
Assessment and Plan Called by nurse that pt saw vaginal bleeding when up to bathroom. SVE revealed minimal bleeding /-2 soft and stretchy. Discussed treatment options and agreed with AROM and internal monitors. AROM clear and pitocin restarted. SVE after interventions /-. Anticipate . OSMEL Sandoval CNM - Patient Problems (1) 36 weeks gestation of Current Visit: Yes Status: Acute (2) IUGR (intrauterine growth restriction) Current Visit: Yes Status: Acute Subjective - Subjective Date of service: 07/08/21 Principal diagnosis: IUP @ 36.5 wks, IOL d/t severe IUGR Interval history: EDC Confirmation: 07/29/2021 Past History : 4 Term Births: 0 Premature Births: 1 Living Children: 1 Para: 1 Mult. Births: 0 Prev : 0 Prev. attempt? 0 Aborta: 2 Elect. Ab: 2 Spont. Ab: 0 Ectopics: 0 # 1 Delivery date: 11/25/2017 Weeks Gestation: 35 labor: yes Delivery type: Hours of labor: 18 Anesthesia type: IV Delivery location: [place] Infant Sex: Male weight: 4-4 Comments: PPROM # 2 Delivery date: 02/2018 Weeks Gestation: 6 Delivery type: EAB Comments: Medical # 3 Delivery date: 03/11/2020 Weeks Gestation: 6 Delivery type: EAB Delivery location: [facility] Past Medical History: Reviewed history from 10/16/2018 and no changes required: Negative Past Medical History Past Surgical History: Reviewed history from 04/20/2020 and no changes required: Negative Past Surgical History Family History Summary: Reviewed history Last on 04/20/2020 and no changes required:01/12/2021 Other Family Member - Has No Family History of Ovarvian Cancer - Entered On: 10/16/2018 Other Family Member - Has Family History Colon Cancer - Entered On: 10/16/2018 Other Family Member - Has Family History Breast Cancer - Entered On: 10/16/2018 Other Family Member - Has Family History of Hypertension - Entered On: 10/16/2018 Other Family Member - Has Family History of Diabetes - Entered On: 10/16/2018 Social History: Reviewed history from 04/20/2020 and no changes required: Marital Status: Single Children: 1 Occupation: Student Smoking History: Patient has never smoked. Risk Factors: Smoked Tobacco Use: Never smoker Smokeless Tobacco Use: Never Passive Smoke Exposure: no HIV High Risk Behavior: low risk Caffeine Use: 0 drinks per day Exercise: no Seatbelt Use: preg-estate planning counselor % No Dietary Counseling Reason: pn yes Alcohol Use: yes Type: occ prior to Drug Use: no Past Medical History Surgery (Non-shared services representative): Negative Past Surgical History Abnormal PAP: negative KIERAN Exposure: negative Infertility: negative Uterine Anomaly: negative Uterine Surgery (not C/S): negative Other Gynecologic Problems: negative Social Hx: Marital Status: Single Children: 1 Occupation: Student Smoking History: Patient has never smoked. Infection History Hx of STD: none HIV Risk Eval: low risk Hepatitis B Risk Eval: low risk Personal hx. of genital herpes: no Rash, Viral, or Febrile illness since last LMP? no Varicella/Chicken Pox Status: Immunized TB Risk: no Genetic History Congenital Heart Defect: Mom: no Dad: no Abelardo Disease: Mom: no Dad: no Thalassemia Mom: no Dad: no Neural Tube Defect Mom: no Dad: no Down's Syndrome Mom: no Dad: no Jarod-Sachs Mom: no Dad: no Sickle Cell Disease/Trait Mom: no Dad: no Hemophilia Mom: no Dad: no Muscular Dystrophy Mom: no Dad: no Cystic Fibrosis Mom: no Dad: no [place] Chorea Mom: no Dad: no Mental Retardation Mom: no Dad: no Fragile X Mom: no Dad: no Other Genetic/Chromosomal Disorder Mom: no Dad: no Child w/other defect Mom: no Dad: no Enviromental Exposures Enviromental Exposures Reviewed Xray Exposure: no Medication, drug, or alcohol use since LMP: no Chemical/Other Exposure: no Exposure to Cat Liter: no Hx of Parvovirus (Fifth Disease): no 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 Current Allergies (reviewed today): * AMOXICILLIN (Critical) * PNC (Critical) Patient reports: vaginal bleeding, movement normal, no new complaints, no loss of fluid, no contractions Objective - Vital Signs Vital Signs: Vital Signs - 12hr 07/07/21 07/07/21 07/07/21 18:47 18:48 18:53 Temperature Pulse Rate 70 64 83 Blood Pressure O2 Sat by Pulse 92 100 99 Oximetry O2 Sat by Pulse Oximetry [ Throughout] 07/07/21 07/07/2122 18:55 18:58 19:03 Temperature Pulse Rate 73 74 76 Blood Pressure 111/59 O2 Sat by Pulse 100 100 Oximetry O2 Sat by Pulse Oximetry [ Throughout] 07/07/21 07/07/21 07/07/21 19:08 19:13 19:18 Temperature Pulse Rate 70 86 75 Blood Pressure O2 Sat by Pulse 100 100 100 Oximetry O2 Sat by Pulse Oximetry [ Throughout] 07/07/21 07/07/21 07/07/21 19:20 19:23 19:28 Temperature 98.2 F Pulse Rate 77 68 Blood Pressure O2 Sat by Pulse 100 100 Oximetry O2 Sat by Pulse 100 Oximetry [ Throughout] 07/07/21 07/07/21 07/07/21 19:32 19:33 19:38 Temperature Pulse Rate 73 76 78 Blood Pressure 111/55 O2 Sat by Pulse 100 90 Oximetry O2 Sat by Pulse Oximetry [ Throughout] 07/07/21 07/07/21 07/07/21 19:43 19:48 19:53 Temperature Pulse Rate 71 72 73 Blood Pressure O2 Sat by Pulse 100 100 99 Oximetry O2 Sat by Pulse Oximetry [ Throughout] 07/07/21 07/07/21 07/07/21 19:58 20:03 20:08 Temperature Pulse Rate 73 73 75 Blood Pressure O2 Sat by Pulse 100 100 100 Oximetry O2 Sat by Pulse Oximetry [ Throughout] 07/07/21 07/07/21 07/07/21 20:13 20:18 20:35 Temperature Pulse Rate 67 73 70 Blood Pressure 108/53 O2 Sat by Pulse 99 100 Oximetry O2 Sat by Pulse Oximetry [ Throughout] 07/07/21 07/07/21 07/07/21 20:36 20:41 20:46 Temperature Pulse Rate 77 63 67 Blood Pressure O2 Sat by Pulse 100 99 99 Oximetry O2 Sat by Pulse Oximetry [ Throughout] 07/07/21 07/07/21 07/07/21 20:51 20:52 20:56 Temperature 98.1 F Pulse Rate 65 67 Blood Pressure O2 Sat by Pulse 100 100 Oximetry O2 Sat by Pulse Oximetry [ Throughout] 07/07/21 07/07/21 07/07/21 20:59 21:01 21:06 Temperature Pulse Rate 66 63 69 Blood Pressure 100/56 O2 Sat by Pulse 85 99 100 Oximetry O2 Sat by Pulse Oximetry [ Throughout] 07/07/21 07/07/21 07/07/21 21:11 21:16 21:23 Temperature Pulse Rate 72 71 25 L Blood Pressure O2 Sat by Pulse 100 100 89 Oximetry O2 Sat by Pulse Oximetry [ Throughout] 07/07/21 07/07/21 07/07/21 21:24 21:29 21:34 Temperature Pulse Rate 93 H 73 81 Blood Pressure O2 Sat by Pulse 100 99 100 Oximetry O2 Sat by Pulse Oximetry [ Throughout] 07/07/21 07/07/21 07/07/21 21:39 21:44 21:49 Temperature Pulse Rate 69 73 91 H Blood Pressure O2 Sat by Pulse 100 100 67 L Oximetry O2 Sat by Pulse Oximetry [ Throughout] 07/07/21 07/07/21 07/07/21 21:54 21:59 22:06 Temperature Pulse Rate 70 71 77 Blood Pressure O2 Sat by Pulse 100 100 68 L Oximetry O2 Sat by Pulse Oximetry [ Throughout] 07/07/21 07/07/21 07/07/21 22:07 22:12 22:17 Temperature Pulse Rate 73 66 69 Blood Pressure O2 Sat by Pulse 95 100 100 Oximetry O2 Sat by Pulse Oximetry [ Throughout] 07/07/21 07/07/21 07/07/21 22:22 22:27 22:32 Temperature Pulse Rate 63 68 67 Blood Pressure O2 Sat by Pulse 99 99 100 Oximetry O2 Sat by Pulse Oximetry [ Throughout] 07/07/21 07/07/21 07/07/21 22:37 22:42 22:43 Temperature Pulse Rate 72 71 67 Blood Pressure 108/55 O2 Sat by Pulse 99 99 Oximetry O2 Sat by Pulse Oximetry [ Throughout] 07/07/21 07/07/21 07/07/21 22:47 22:52 22:55 Temperature Pulse Rate 64 68 76 Blood Pressure 100/51 O2 Sat by Pulse 99 99 Oximetry O2 Sat by Pulse Oximetry [ Throughout] 07/07/21 07/07/21 07/07/21 22:57 23:02 23:07 Temperature Pulse Rate 64 71 69 Blood Pressure O2 Sat by Pulse 99 99 99 Oximetry O2 Sat by Pulse Oximetry [ Throughout] 07/07/21 07/07/21 07/07/21 23:12 23:17 23:22 Temperature Pulse Rate 62 68 63 Blood Pressure O2 Sat by Pulse 99 99 99 Oximetry O2 Sat by Pulse Oximetry [ Throughout] 07/07/21 07/07/21 07/07/21 23:27 23:30 23:32 Temperature 97.6 F Pulse Rate 65 71 Blood Pressure O2 Sat by Pulse 99 99 Oximetry O2 Sat by Pulse Oximetry [ Throughout] 07/07/21 07/07/21 07/07/21 23:37 23:42 23:47 Temperature Pulse Rate 58 L 52 L 52 L Blood Pressure O2 Sat by Pulse 100 99 100 Oximetry O2 Sat by Pulse Oximetry [ Throughout] 07/07/21 07/08/21 07/08/21 23:52 00:01 00:02 Temperature Pulse Rate 53 L 65 58 L Blood Pressure 104/57 O2 Sat by Pulse 100 100 Oximetry O2 Sat by Pulse Oximetry [ Throughout] 07/08/21 07/08/21 07/08/21 00:06 00:11 00:16 Temperature Pulse Rate 55 L 54 L 51 L Blood Pressure O2 Sat by Pulse 100 100 100 Oximetry O2 Sat by Pulse Oximetry [ Throughout] 07/08/21 07/08/21 07/08/21 00:21 00:26 00:31 Temperature Pulse Rate 51 L 54 L 58 L Blood Pressure O2 Sat by Pulse 99 100 99 Oximetry O2 Sat by Pulse Oximetry [ Throughout] 07/08/21 07/08/21 07/08/21 00:36 00:41 00:46 Temperature Pulse Rate 60 57 L 74 Blood Pressure O2 Sat by Pulse 99 99 100 Oximetry O2 Sat by Pulse Oximetry [ Throughout] 07/08/21 07/08/21 07/08/21 00:51 00:55 00:56 Temperature Pulse Rate 58 L 66 65 Blood Pressure 103/51 O2 Sat by Pulse 99 99 Oximetry O2 Sat by Pulse Oximetry [ Throughout] 07/08/21 07/08/21 07/08/21 01:01 01:06 01:11 Temperature Pulse Rate 64 56 L 58 L Blood Pressure O2 Sat by Pulse 99 98 99 Oximetry O2 Sat by Pulse Oximetry [ Throughout] 07/08/21 07/08/21 07/08/21 01:16 01:21 01:26 Temperature Pulse Rate 58 L 59 L 50 L Blood Pressure O2 Sat by Pulse 100 100 100 Oximetry O2 Sat by Pulse Oximetry [ Throughout] 07/08/21 07/08/21 07/08/21 01:31 01:36 01:41 Temperature Pulse Rate 54 L 56 L 51 L Blood Pressure O2 Sat by Pulse 100 100 100 Oximetry O2 Sat by Pulse Oximetry [ Throughout] 07/08/21 07/08/21 07/08/21 01:46 01:51 01:56 Temperature Pulse Rate 58 L 59 L 53 L Blood Pressure 118/60 O2 Sat by Pulse 99 99 Oximetry O2 Sat by Pulse Oximetry [ Throughout] 07/08/21 07/08/21 07/08/21 01:57 02:02 02:07 Temperature Pulse Rate 80 51 L 57 L Blood Pressure O2 Sat by Pulse 99 99 99 Oximetry O2 Sat by Pulse Oximetry [ Throughout] 07/08/21 07/08/21 07/08/21 02:12 02:17 02:22 Temperature Pulse Rate 50 L 55 L 52 L Blood Pressure O2 Sat by Pulse 99 99 99 Oximetry O2 Sat by Pulse Oximetry [ Throughout] 07/08/21 07/08/21 07/08/21 02:27 02:32 02:37 Temperature Pulse Rate 59 L 60 53 L Blood Pressure O2 Sat by Pulse 98 98 99 Oximetry O2 Sat by Pulse Oximetry [ Throughout] 07/08/21 07/08/21 07/08/21 02:42 02:47 02:52 Temperature Pulse Rate 54 L 50 L 56 L Blood Pressure O2 Sat by Pulse 98 98 98 Oximetry O2 Sat by Pulse Oximetry [ Throughout] 07/08/21 07/08/21 07/08/21 02:55 02:57 03:02 Temperature Pulse Rate 56 L 56 L 58 L Blood Pressure 134/65 O2 Sat by Pulse 98 98 Oximetry O2 Sat by Pulse Oximetry [ Throughout] 07/08/21 07/08/21 07/08/21 03:07 03:12 03:17 Temperature Pulse Rate 56 L 57 L 58 L Blood Pressure O2 Sat by Pulse 99 98 99 Oximetry O2 Sat by Pulse Oximetry [ Throughout] 07/08/21 07/08/21 07/08/21 03:22 03:27 03:32 Temperature Pulse Rate 59 L 52 L 56 L Blood Pressure O2 Sat by Pulse 98 99 98 Oximetry O2 Sat by Pulse Oximetry [ Throughout] 07/08/21 07/08/21 07/08/21 03:37 03:38 03:42 Temperature 97.9 F Pulse Rate 62 48 L Blood Pressure O2 Sat by Pulse 100 99 Oximetry O2 Sat by Pulse Oximetry [ Throughout] 07/08/21 07/08/21 07/08/21 03:47 03:52 03:55 Temperature Pulse Rate 52 L 55 L 69 Blood Pressure 114/63 O2 Sat by Pulse 99 99 Oximetry O2 Sat by Pulse Oximetry [ Throughout] 07/08/21 07/08/21 07/08/21 03:57 04:02 04:07 Temperature Pulse Rate 49 L 60 61 Blood Pressure O2 Sat by Pulse 99 98 98 Oximetry O2 Sat by Pulse Oximetry [ Throughout] 07/08/21 07/08/21 07/08/21 04:12 04:17 04:22 Temperature Pulse Rate 58 L 56 L 52 L Blood Pressure O2 Sat by Pulse 98 98 98 Oximetry O2 Sat by Pulse Oximetry [ Throughout] 07/08/21 07/08/21 07/08/21 04:27 04:32 04:37 Temperature Pulse Rate 53 L 57 L 61 Blood Pressure O2 Sat by Pulse 99 99 99 Oximetry O2 Sat by Pulse Oximetry [ Throughout] 07/08/21 07/08/21 07/08/21 04:42 04:47 04:52 Temperature Pulse Rate 61 59 L 71 Blood Pressure O2 Sat by Pulse 99 99 100 Oximetry O2 Sat by Pulse Oximetry [ Throughout] 07/08/21 07/08/21 07/08/21 04:55 04:57 05:02 Temperature Pulse Rate 54 L 62 54 L Blood Pressure 120/59 O2 Sat by Pulse 100 100 Oximetry O2 Sat by Pulse Oximetry [ Throughout] 07/08/21 07/08/21 07/08/21 05:07 05:12 05:35 Temperature Pulse Rate 57 L 54 L 56 L Blood Pressure 105/59 O2 Sat by Pulse 100 100 Oximetry O2 Sat by Pulse Oximetry [ Throughout] 07/08/21 07/08/21 07/08/21 05:36 05:41 05:46 Temperature Pulse Rate 66 71 65 Blood Pressure O2 Sat by Pulse 100 100 100 Oximetry O2 Sat by Pulse Oximetry [ Throughout] 07/08/21 07/08/21 07/08/21 05:51 05:55 05:56 Temperature Pulse Rate 57 L 53 L 53 L Blood Pressure 106/64 O2 Sat by Pulse 100 100 Oximetry O2 Sat by Pulse Oximetry [ Throughout] 07/08/21 07/08/21 07/08/21 06:01 06:06 06:07 Temperature Pulse Rate 59 L 58 L 60 Blood Pressure O2 Sat by Pulse 100 100 93 Oximetry O2 Sat by Pulse Oximetry [ Throughout] 07/08/21 07/08/21 07/08/21 06:11 06:16 06:21 Temperature Pulse Rate 58 L 54 L 57 L Blood Pressure O2 Sat by Pulse 100 100 100 Oximetry O2 Sat by Pulse Oximetry [ Throughout] 07/08/21 07/08/21 07/08/21 06:26 06:31 06:36 Temperature Pulse Rate 61 62 91 H Blood Pressure O2 Sat by Pulse 100 100 100 Oximetry O2 Sat by Pulse Oximetry [ Throughout] 07/08/21 06:41 Temperature Pulse Rate 59 L Blood Pressure O2 Sat by Pulse 100 Oximetry O2 Sat by Pulse Oximetry [ Throughout] - Exam Breasts: normal Abdomen: Present: normal appearance, soft Vulva: both: normal Uterus: Present: normal FHR: category 2 Uterine Contraction Monitor Mode: Internal Cervical Dilatation: 4 (AROM clear) Cervical Effacement Percentage: 80 station: -1 Uterine Contraction Pattern: Irregular Uterine Tone Measurement Phase: Resting Uterine Contraction Intensity: Mild Extremities: normal - Labs Labs: Abnormal Labs 07/05/21 15:00 RBC 3.49 L MCH 33 H MCHC 36 H
[2021-07-08] MEDS: fentaNYL 100 MCG/2 ML INJ IV SCH ×2 (09:23→10:57)
[2021-07-08] MEDS ORDERED: SODIUM CHLORIDE 0.9% 1000 ML 1,000 ML ONE (09:49)
--- NOTE | 2021-07-08 09:52 | Progress Note ---
Assessment and Plan deep early decels noted with each ctx, patient feels like she needs to have BM - SVE 6/100/+1. Order for amnioinfusion. pitocin off. Anticipate soon - Patient Problems (1) 36 weeks gestation of Current Visit: Yes Status: Acute (2) IUGR (intrauterine growth restriction) Current Visit: Yes Status: Acute Subjective - Subjective Date of service: 07/08/21 Principal diagnosis: IUP @ 36.5 wks, IOL d/t severe IUGR Interval history: EDC Confirmation: 07/29/2021 Past History : 4 Term Births: 0 Premature Births: 1 Living Children: 1 Para: 1 Mult. Births: 0 Prev : 0 Prev. attempt? 0 Aborta: 2 Elect. Ab: 2 Spont. Ab: 0 Ectopics: 0 # 1 Delivery date: 11/25/2017 Weeks Gestation: 35 labor: yes Delivery type: Hours of labor: 18 Anesthesia type: IV Delivery location: [facility] Sex: Male weight: 4-4 Comments: PPROM # 2 Delivery date: 02/2018 Weeks Gestation: 6 Delivery type: EAB Comments: Medical # 3 Delivery date: 03/11/2020 Weeks Gestation: 6 Delivery type: EAB [facility] Past Medical History: Reviewed history from 10/16/2018 and no changes required: Negative Past Medical History Past Surgical History: Reviewed history from 04/20/2020 and no changes required: Negative Past Surgical History Family History Summary: Reviewed history Last on 04/20/2020 and no changes required:01/12/2021 Other Family Member - Has No Family History of Ovarvian Cancer - Entered On: 10/16/2018 Other Family Member - Has Family History Colon Cancer - Entered On: 10/16/2018 Other Family Member - Has Family History Breast Cancer - Entered On: 10/16/2018 Other Family Member - Has Family History of Hypertension - Entered On: 10/16/2018 Other Family Member - Has Family History of Diabetes - Entered On: 10/16/2018 Social History: Reviewed history from 04/20/2020 and no changes required: Marital Status: Single Children: 1 Occupation: Student Smoking History: Patient has never smoked. 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 Infection History Hx of STD: none HIV Risk Eval: low risk Hepatitis B Risk Eval: low risk Personal hx. of genital herpes: no Rash, Viral, or Febrile illness since last LMP? no Varicella/Chicken Pox Status: Immunized TB Risk: no Genetic History Congenital Heart Defect: Mom: no Dad: no Abelardo Disease: Mom: no Dad: no Thalassemia Mom: no Dad: no Neural Tube Defect Mom: no Dad: no Down's Syndrome Mom: no Dad: no Jarod-Sachs Mom: no Dad: no Sickle Cell Disease/Trait Mom: no Dad: no Hemophilia Mom: no Dad: no Muscular Dystrophy Mom: no Dad: no Cystic Fibrosis Mom: no Dad: no Catarina Chorea Mom: no Dad: no Mental Retardation Mom: no Dad: no Fragile X Mom: no Dad: no Other Genetic/Chromosomal Disorder Mom: no Dad: no Child w/other defect Mom: no Dad: no Enviromental Exposures Enviromental Exposures Reviewed Xray Exposure: no Medication, drug, or alcohol use since LMP: no Chemical/Other Exposure: no Exposure to Cat Liter: no Hx of Parvovirus (Fifth Disease): no 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 Current Allergies (reviewed today): * AMOXICILLIN (Critical) * PNC (Critical) Patient reports: vaginal bleeding, movement normal, no new complaints, no loss of fluid, no contractions Objective - Vital Signs Vital Signs: Vital Signs - 12hr 07/07/21 07/07/21 07/07/21 21:54 21:59 22:06 Temperature Pulse Rate 70 71 77 Respiratory Rate Blood Pressure Blood Pressure [Left] O2 Sat by Pulse 100 100 68 L Oximetry O2 Sat by Pulse Oximetry [ Throughout] 07/07/21 07/07/21 07/07/21 22:07 22:12 22:17 Temperature Pulse Rate 73 66 69 Respiratory Rate Blood Pressure Blood Pressure [Left] O2 Sat by Pulse 95 100 100 Oximetry O2 Sat by Pulse Oximetry [ Throughout] 07/07/21 07/07/21 07/07/21 22:22 22:27 22:32 Temperature Pulse Rate 63 68 67 Respiratory Rate Blood Pressure Blood Pressure [Left] O2 Sat by Pulse 99 99 100 Oximetry O2 Sat by Pulse Oximetry [ Throughout] 07/07/21 07/07/21 07/07/21 22:37 22:42 22:43 Temperature Pulse Rate 72 71 67 Respiratory Rate Blood Pressure 108/55 Blood Pressure [Left] O2 Sat by Pulse 99 99 Oximetry O2 Sat by Pulse Oximetry [ Throughout] 07/07/21 07/07/21 07/07/21 22:47 22:52 22:55 Temperature Pulse Rate 64 68 76 Respiratory Rate Blood Pressure 100/51 Blood Pressure [Left] O2 Sat by Pulse 99 99 Oximetry O2 Sat by Pulse Oximetry [ Throughout] 07/07/21 07/07/21 07/07/21 22:57 23:02 23:07 Temperature Pulse Rate 64 71 69 Respiratory Rate Blood Pressure Blood Pressure [Left] O2 Sat by Pulse 99 99 99 Oximetry O2 Sat by Pulse Oximetry [ Throughout] 07/07/21 07/07/21 07/07/21 23:12 23:17 23:22 Temperature Pulse Rate 62 68 63 Respiratory Rate Blood Pressure Blood Pressure [Left] O2 Sat by Pulse 99 99 99 Oximetry O2 Sat by Pulse Oximetry [ Throughout] 07/07/21 07/07/21 07/07/21 23:27 23:30 23:32 Temperature 97.6 F Pulse Rate 65 71 Respiratory Rate Blood Pressure Blood Pressure [Left] O2 Sat by Pulse 99 99 Oximetry O2 Sat by Pulse Oximetry [ Throughout] 07/07/21 07/07/21 07/07/21 23:37 23:42 23:47 Temperature Pulse Rate 58 L 52 L 52 L Respiratory Rate Blood Pressure Blood Pressure [Left] O2 Sat by Pulse 100 99 100 Oximetry O2 Sat by Pulse Oximetry [ Throughout] 07/07/21 07/08/21 07/08/21 23:52 00:01 00:02 Temperature Pulse Rate 53 L 65 58 L Respiratory Rate Blood Pressure 104/57 Blood Pressure [Left] O2 Sat by Pulse 100 100 Oximetry O2 Sat by Pulse Oximetry [ Throughout] 07/08/21 07/08/21 07/08/21 00:06 00:11 00:16 Temperature Pulse Rate 55 L 54 L 51 L Respiratory Rate Blood Pressure Blood Pressure [Left] O2 Sat by Pulse 100 100 100 Oximetry O2 Sat by Pulse Oximetry [ Throughout] 07/08/21 07/08/21 07/08/21 00:21 00:26 00:31 Temperature Pulse Rate 51 L 54 L 58 L Respiratory Rate Blood Pressure Blood Pressure [Left] O2 Sat by Pulse 99 100 99 Oximetry O2 Sat by Pulse Oximetry [ Throughout] 07/08/21 07/08/21 07/08/21 00:36 00:41 00:46 Temperature Pulse Rate 60 57 L 74 Respiratory Rate Blood Pressure Blood Pressure [Left] O2 Sat by Pulse 99 99 100 Oximetry O2 Sat by Pulse Oximetry [ Throughout] 07/08/21 07/08/21 07/08/21 00:51 00:55 00:56 Temperature Pulse Rate 58 L 66 65 Respiratory Rate Blood Pressure 103/51 Blood Pressure [Left] O2 Sat by Pulse 99 99 Oximetry O2 Sat by Pulse Oximetry [ Throughout] 07/08/21 07/08/21 07/08/21 01:01 01:06 01:11 Temperature Pulse Rate 64 56 L 58 L Respiratory Rate Blood Pressure Blood Pressure [Left] O2 Sat by Pulse 99 98 99 Oximetry O2 Sat by Pulse Oximetry [ Throughout] 07/08/21 07/08/21 07/08/21 01:16 01:21 01:26 Temperature Pulse Rate 58 L 59 L 50 L Respiratory Rate Blood Pressure Blood Pressure [Left] O2 Sat by Pulse 100 100 100 Oximetry O2 Sat by Pulse Oximetry [ Throughout] 07/08/21 07/08/21 07/08/21 01:31 01:36 01:41 Temperature Pulse Rate 54 L 56 L 51 L Respiratory Rate Blood Pressure Blood Pressure [Left] O2 Sat by Pulse 100 100 100 Oximetry O2 Sat by Pulse Oximetry [ Throughout] 07/08/21 07/08/21 07/08/21 01:46 01:51 01:56 Temperature Pulse Rate 58 L 59 L 53 L Respiratory Rate Blood Pressure 118/60 Blood Pressure [Left] O2 Sat by Pulse 99 99 Oximetry O2 Sat by Pulse Oximetry [ Throughout] 07/08/21 07/08/21 07/08/21 01:57 02:02 02:07 Temperature Pulse Rate 80 51 L 57 L Respiratory Rate Blood Pressure Blood Pressure [Left] O2 Sat by Pulse 99 99 99 Oximetry O2 Sat by Pulse Oximetry [ Throughout] 07/08/21 07/08/21 07/08/21 02:12 02:17 02:22 Temperature Pulse Rate 50 L 55 L 52 L Respiratory Rate Blood Pressure Blood Pressure [Left] O2 Sat by Pulse 99 99 99 Oximetry O2 Sat by Pulse Oximetry [ Throughout] 07/08/21 07/08/21 07/08/21 02:27 02:32 02:37 Temperature Pulse Rate 59 L 60 53 L Respiratory Rate Blood Pressure Blood Pressure [Left] O2 Sat by Pulse 98 98 99 Oximetry O2 Sat by Pulse Oximetry [ Throughout] 07/08/21 07/08/21 07/08/21 02:42 02:47 02:52 Temperature Pulse Rate 54 L 50 L 56 L Respiratory Rate Blood Pressure Blood Pressure [Left] O2 Sat by Pulse 98 98 98 Oximetry O2 Sat by Pulse Oximetry [ Throughout] 07/08/21 07/08/21 07/08/21 02:55 02:57 03:02 Temperature Pulse Rate 56 L 56 L 58 L Respiratory Rate Blood Pressure 134/65 Blood Pressure [Left] O2 Sat by Pulse 98 98 Oximetry O2 Sat by Pulse Oximetry [ Throughout] 07/08/21 07/08/21 07/08/21 03:07 03:12 03:17 Temperature Pulse Rate 56 L 57 L 58 L Respiratory Rate Blood Pressure Blood Pressure [Left] O2 Sat by Pulse 99 98 99 Oximetry O2 Sat by Pulse Oximetry [ Throughout] 07/08/21 07/08/21 07/08/21 03:22 03:27 03:32 Temperature Pulse Rate 59 L 52 L 56 L Respiratory Rate Blood Pressure Blood Pressure [Left] O2 Sat by Pulse 98 99 98 Oximetry O2 Sat by Pulse Oximetry [ Throughout] 07/08/21 07/08/21 07/08/21 03:37 03:38 03:42 Temperature 97.9 F Pulse Rate 62 48 L Respiratory Rate Blood Pressure Blood Pressure [Left] O2 Sat by Pulse 100 99 Oximetry O2 Sat by Pulse Oximetry [ Throughout] 07/08/21 07/08/21 07/08/21 03:47 03:52 03:55 Temperature Pulse Rate 52 L 55 L 69 Respiratory Rate Blood Pressure 114/63 Blood Pressure [Left] O2 Sat by Pulse 99 99 Oximetry O2 Sat by Pulse Oximetry [ Throughout] 07/08/21 07/08/21 07/08/21 03:57 04:02 04:07 Temperature Pulse Rate 49 L 60 61 Respiratory Rate Blood Pressure Blood Pressure [Left] O2 Sat by Pulse 99 98 98 Oximetry O2 Sat by Pulse Oximetry [ Throughout] 07/08/21 07/08/21 07/08/21 04:12 04:17 04:22 Temperature Pulse Rate 58 L 56 L 52 L Respiratory Rate Blood Pressure Blood Pressure [Left] O2 Sat by Pulse 98 98 98 Oximetry O2 Sat by Pulse Oximetry [ Throughout] 07/08/21 07/08/21 07/08/21 04:27 04:32 04:37 Temperature Pulse Rate 53 L 57 L 61 Respiratory Rate Blood Pressure Blood Pressure [Left] O2 Sat by Pulse 99 99 99 Oximetry O2 Sat by Pulse Oximetry [ Throughout] 07/08/21 07/08/21 07/08/21 04:42 04:47 04:52 Temperature Pulse Rate 61 59 L 71 Respiratory Rate Blood Pressure Blood Pressure [Left] O2 Sat by Pulse 99 99 100 Oximetry O2 Sat by Pulse Oximetry [ Throughout] 07/08/21 07/08/21 07/08/21 04:55 04:57 05:02 Temperature Pulse Rate 54 L 62 54 L Respiratory Rate Blood Pressure 120/59 Blood Pressure [Left] O2 Sat by Pulse 100 100 Oximetry O2 Sat by Pulse Oximetry [ Throughout] 07/08/21 07/08/21 07/08/21 05:07 05:12 05:35 Temperature Pulse Rate 57 L 54 L 56 L Respiratory Rate Blood Pressure 105/59 Blood Pressure [Left] O2 Sat by Pulse 100 100 Oximetry O2 Sat by Pulse Oximetry [ Throughout] 07/08/21 07/08/21 07/08/21 05:36 05:41 05:46 Temperature Pulse Rate 66 71 65 Respiratory Rate Blood Pressure Blood Pressure [Left] O2 Sat by Pulse 100 100 100 Oximetry O2 Sat by Pulse Oximetry [ Throughout] 07/08/21 07/08/21 07/08/21 05:51 05:55 05:56 Temperature Pulse Rate 57 L 53 L 53 L Respiratory Rate Blood Pressure 106/64 Blood Pressure [Left] O2 Sat by Pulse 100 100 Oximetry O2 Sat by Pulse Oximetry [ Throughout] 07/08/21 07/08/21 07/08/21 06:01 06:06 06:07 Temperature Pulse Rate 59 L 58 L 60 Respiratory Rate Blood Pressure Blood Pressure [Left] O2 Sat by Pulse 100 100 93 Oximetry O2 Sat by Pulse Oximetry [ Throughout] 07/08/21 07/08/21 07/08/21 06:11 06:16 06:21 Temperature Pulse Rate 58 L 54 L 57 L Respiratory Rate Blood Pressure Blood Pressure [Left] O2 Sat by Pulse 100 100 100 Oximetry O2 Sat by Pulse Oximetry [ Throughout] 07/08/21 07/08/21 07/08/21 06:26 06:31 06:36 Temperature Pulse Rate 61 62 91 H Respiratory Rate Blood Pressure Blood Pressure [Left] O2 Sat by Pulse 100 100 100 Oximetry O2 Sat by Pulse Oximetry [ Throughout] 07/08/21 07/08/21 07/08/21 06:41 06:46 06:51 Temperature Pulse Rate 59 L 52 L 58 L Respiratory Rate Blood Pressure Blood Pressure [Left] O2 Sat by Pulse 100 100 100 Oximetry O2 Sat by Pulse Oximetry [ Throughout] 07/08/21 07/08/21 07/08/21 06:55 06:56 07:01 Temperature Pulse Rate 51 L 57 L 57 L Respiratory Rate Blood Pressure 115/60 Blood Pressure [Left] O2 Sat by Pulse 100 100 Oximetry O2 Sat by Pulse Oximetry [ Throughout] 07/08/21 07/08/21 07/08/21 07:06 07:11 07:16 Temperature Pulse Rate 58 L 52 L 54 L Respiratory Rate Blood Pressure Blood Pressure [Left] O2 Sat by Pulse 100 100 100 Oximetry O2 Sat by Pulse Oximetry [ Throughout] 07/08/21 07/08/21 07/08/21 07:21 07:26 07:30 Temperature Pulse Rate 51 L 51 L Respiratory Rate Blood Pressure Blood Pressure [Left] O2 Sat by Pulse 100 100 Oximetry O2 Sat by Pulse 100 Oximetry [ Throughout] 07/08/21 07/08/21 07/08/21 07:31 07:36 07:41 Temperature Pulse Rate 53 L 56 L 58 L Respiratory Rate Blood Pressure Blood Pressure [Left] O2 Sat by Pulse 100 100 100 Oximetry O2 Sat by Pulse Oximetry [ Throughout] 07/08/21 07/08/21 07/08/21 07:46 07:51 07:55 Temperature Pulse Rate 55 L 52 L 48 L Respiratory Rate Blood Pressure 114/62 Blood Pressure [Left] O2 Sat by Pulse 100 100 Oximetry O2 Sat by Pulse Oximetry [ Throughout] 07/08/21 07/08/21 07/08/21 07:56 08:00 08:01 Temperature 98.2 F Pulse Rate 50 L 59 L 57 L Respiratory 14 Rate Blood Pressure Blood Pressure 114/62 [Left] O2 Sat by Pulse 100 100 100 Oximetry O2 Sat by Pulse Oximetry [ Throughout] 07/08/21 07/08/21 07/08/21 08:06 08:11 08:16 Temperature Pulse Rate 53 L 56 L 57 L Respiratory Rate Blood Pressure Blood Pressure [Left] O2 Sat by Pulse 100 100 100 Oximetry O2 Sat by Pulse Oximetry [ Throughout] 07/08/21 07/08/21 07/08/21 08:21 08:26 08:31 Temperature Pulse Rate 58 L 70 59 L Respiratory Rate Blood Pressure Blood Pressure [Left] O2 Sat by Pulse 100 100 100 Oximetry O2 Sat by Pulse Oximetry [ Throughout] 07/08/21 07/08/21 07/08/21 08:36 08:41 08:46 Temperature Pulse Rate 58 L 48 L 53 L Respiratory Rate Blood Pressure Blood Pressure [Left] O2 Sat by Pulse 100 100 100 Oximetry O2 Sat by Pulse Oximetry [ Throughout] 07/08/21 07/08/21 07/08/21 08:51 08:55 08:56 Temperature Pulse Rate 59 L 48 L 57 L Respiratory Rate Blood Pressure 130/58 Blood Pressure [Left] O2 Sat by Pulse 100 100 Oximetry O2 Sat by Pulse Oximetry [ Throughout] 07/08/21 07/08/21 07/08/21 09:01 09:06 09:11 Temperature Pulse Rate 56 L 70 72 Respiratory Rate Blood Pressure Blood Pressure [Left] O2 Sat by Pulse 100 100 100 Oximetry O2 Sat by Pulse Oximetry [ Throughout] 07/08/21 07/08/21 07/08/21 09:16 09:21 09:24 Temperature Pulse Rate 66 69 75 Respiratory Rate Blood Pressure Blood Pressure [Left] O2 Sat by Pulse 93 100 85 Oximetry O2 Sat by Pulse Oximetry [ Throughout] 07/08/21 07/08/21 07/08/21 09:26 09:31 09:36 Temperature Pulse Rate 59 L 54 L 56 L Respiratory Rate Blood Pressure Blood Pressure [Left] O2 Sat by Pulse 100 87 74 L Oximetry O2 Sat by Pulse Oximetry [ Throughout] 07/08/21 07/08/21 07/08/21 09:39 09:41 09:46 Temperature Pulse Rate 68 62 69 Respiratory Rate Blood Pressure Blood Pressure [Left] O2 Sat by Pulse 90 100 88 Oximetry O2 Sat by Pulse Oximetry [ Throughout] - Exam Cardiovascular: Regular rate Lungs: Normal air movement Abdomen: Present: normal appearance, soft Vulva: both: normal Uterus: Present: normal FHR: category 2 Uterine Contraction Monitor Mode: Internal Cervical Dilatation: 6 Cervical Effacement Percentage: 100 station: +1 Uterine Contraction Frequency (min): 3-4 Uterine Contraction Duration: 60 Uterine Contraction Pattern: Regular Uterine Tone Measurement Phase: Contraction Uterine Contraction Intensity: Strong/Firm Extremities: normal - Labs Labs: Abnormal Labs 07/05/21 15:00 RBC 3.49 L MCH 33 H MCHC 36 H
[2021-07-08] MEDS ORDERED: SODIUM CHLORIDE 0.9% 1000 ML 1,000 ML VG SCH (10:00)
--- NOTE | 2021-07-08 11:18 | Procedure Note ---
OB Delivery Note - Delivery Date of Delivery: 07/08/21 Program Supervisor: MERA COLLINS Estimated blood loss: 500cc - Vaginal Delivery presentation: vertex Delivery position: OA Intrapartum events: cord prolapse, extend. bradycardia, mult.variable deceleratio Delivery induction: cervidil Delivery augmentation: rupture of membranes, pitocin Delivery monitor: internal FHT, internal uterine Route of delivery: Delivery placenta: spontaneous Delivery cord: 3 umbilical vessels, other (cord prolapse when pt was complete) Episiotomy: none Delivery laceration: none Anesthesia: intravenous Delivery comments: Patient with strong urge to push with ctx, anterior lip/+2. cervix reduced and pt encouraged to push. approx 12inches of cord prolapsed past baby's head at location approx 10 o'clock in pelvis, FHT in the 50's. Call placed desk to call Dr. Pop and any MD in house overhead. Patient instructed to push and she pushed out female <1 minute, KELSEY. with immediate gasp and tone. Cord clamped and cut, handed to PUBLIC SAFETY TELECOMMUNICATOR for assessment. Cord blood collected. Placenta birthed intact and complete - sent to pathology d/t IUGR. All counts correct, fundus firm, lochia small after delivery. Approx 5 minutes post delivery, pt had increase in lochia and uterus was found to be boggy. responded with Cytotect and methergine. Will continue to monitor closely. - A at 1 minute: 8 at 5 minutes: 9 Gender: Female (4#11oz, "Callie")
[2021-07-08] MEDS: OXYTOCIN DRIP 30 UNITS/500 ML BAG IV SCH (11:40)
[2021-07-08] MEDS ORDERED: diphenhydrAMINE 25 MG CAP PO PRN (14:09)
[2021-07-08] MEDS ORDERED: MAGNESIUM HYDROXIDE (MOM) ORAL LIQD UDC PO PRN (14:09)
[2021-07-08] MEDS ORDERED: LANOLIN/ZINC/DIMETHICONE (LANSINOH) 7 GM TP PRN (14:09)
[2021-07-08] MEDS ORDERED: PROMETHAZINE 25 MG TAB PO PRN (14:09)
[2021-07-08] MEDS ORDERED: BENZOCAINE/MENTHOL 20/0.5% TOP SPRAY 56 GM TP PRN (14:09)
[2021-07-08] MEDS ORDERED: WITCH HAZEL/ GLYCERIN PAD TP PRN (14:09)
[2021-07-08] MEDS ORDERED: ONDANSETRON 4 MG/2 ML INJ IV PRN (14:09)
[2021-07-08] MEDS ORDERED: PROMETHAZINE 25 MG RECT SUPP PR PRN (14:09)
[2021-07-08] MEDS ORDERED: FAMOTIDINE 10 MG TAB PO PRN (14:23)
[2021-07-08] MEDS: IBUPROFEN 800 MG TAB PO SCH ×2 (14:53→21:24)
[2021-07-08] MEDS: DOCUSATE SODIUM 100 MG CAP PO SCH (21:24)
[2021-07-08 23:33] LABS: Hemoglobin 9.1 gm/dl (10.1-14.3)
[2021-07-09] MEDS: IBUPROFEN 800 MG TAB PO SCH ×3 (05:30→18:00)
--- NOTE | 2021-07-09 09:33 | Discharge Summary ---
Providers - Providers Date of Admission: 07/05/21 14:24 Date of discharge: 07/09/21 (pt desires discharge home) Attending physician: NICOLE OGLESBY 07/08/21 14:09 Consult to Lip Reading Teacher [CONS] Routine Reason For Exam: assistance with , SNS Primary care physician: NICOLE OGLESBY Hospitalization Reason for admission: IUP - , induction of labor Delivery: Episiotomy: none Laceration: none Other procedures: none complications: none Discharge diagnosis: delivery baby: female Condition at discharge: Good Disposition: 01 HOME / SELF CARE / HOMELESS - Discharge Diagnoses (1) (normal spontaneous vaginal delivery) Status: Acute Comment: Pt denies having any complaints. VSSAF; H&H post delivery with anemia s/p acute blood loss. Fe supplementation ordered. Pt reports ambulating, voiding, and eating without difficulty, and reports desires for discharge home today. Fundus firm at umbilicus. Extremities normal and without edema or skin color changes. Breasts normal, filling; pt reports and bottle feeding. Discharge precautions reviewed. Questions encouraged and answered. Pt verbalizes understanding and agrees to POC. Plan - Discharge Medications Prescriptions: Ferrous Sulfate [Feosol 325 MG tab] 325 mg PO BID #90 tablet Ibuprofen [Motrin 800 MG tab] 800 mg PO Q8HR PRN #30 tablet PRN Reason: Pain - Provider Discharge Summary Activity: routine, no sex for 6 weeks, no heavy lifting 4 weeks, no strenuous exercise Diet: routine Instructions: routine Additional instructions: [] Smoking cessation referral if applicable(refer to patient education folder for contact #) [] Refer to [facility] Booklet Call your doctor immediately for: * Fever > 100.5 * Heavy vaginal bleeding ( >1 pad per hour) * Severe persistent headache * Shortness of breath * Reddened, hot, painful area to leg or breast Congratulations! Please call [phone] and schedule your visit for 4 weeks after delivery. Thank you! - Follow up plan Follow up: NICOLE OGLESBY MD [Primary Care Provider] - 7 Days
[2021-07-09] MEDS: PRENATAL VIT27-FE FUMARATE-FOLIC ACID VIT TAB PO SCH (10:43)
[2021-07-09] MEDS: DOCUSATE SODIUM 100 MG CAP PO SCH (10:43)
[2021-07-09] MEDS: FERROUS SULFATE 325 MG TAB PO SCH (10:43)
[2021-07-09] MEDS ORDERED: TETANUS,DIPH,PERTUSS(ACELL) VACCINE 0.5 ML SYRINGE IM ONE (11:10)
[2021-07-10] MEDS: FERROUS SULFATE 325 MG TAB PO SCH ×2 (00:09→10:16)
[2021-07-10] MEDS: DOCUSATE SODIUM 100 MG CAP PO SCH ×2 (00:09→10:16)
[2021-07-10] MEDS: IBUPROFEN 800 MG TAB PO SCH ×2 (00:09→05:12)
[2021-07-10] MEDS: PRENATAL VIT27-FE FUMARATE-FOLIC ACID VIT TAB PO SCH (10:16)
[2021-07-10 11:35] VITALS: BP 112/55
== END 2021-07-10 11:09 | disposition home or self-care (01) | DRG 775 ==
LOC: LD 14:24 → OB 07-08 13:00
PROVIDERS: ADMIT Obstetrics & Gynecology; ATTEND Obstetrics & Gynecology
PROC: 10E0XZZ Delivery of Products of Conception, External Approach (ICD-10-PCS; principal; 2021-07-08)
PROC: 10907ZC Drainage of Amniotic Fluid, Therapeutic from Products of Conception, Via Natural or Artificial Opening (ICD-10-PCS; 2021-07-08)
PROC: 3E0234Z Introduction of Serum, Toxoid and Vaccine into Muscle, Percutaneous Approach (ICD-10-PCS; 2021-07-09)
DX: O36.5930 Maternal care for other known or suspected poor fetal growth, third trimester, not applicable or unspecified (principal); Z3A.36 36 weeks gestation of pregnancy; Z20.822 Contact with and (suspected) exposure to COVID-19; O60.14X0 Preterm labor third trimester with preterm delivery third trimester, not applicable or unspecified; O76 Abnormality in fetal heart rate and rhythm complicating labor and delivery; O69.0XX0 Labor and delivery complicated by prolapse of cord, not applicable or unspecified; Z37.0 Single live birth; Z23 Encounter for immunization; O90.81 Anemia of the puerperium; D62 Acute posthemorrhagic anemia
CPT/HCPCS: 36415; 59200; 85014; 85018; 85027; 86592; 86850; 86900; 86901; 88305; 88307; 99211; G0378; Q0162; G0463; J2210; J2405; J2590; J3010; J7030; J7120; Q0169; U0003